=== PATIENT | female | born 2000 | race Caucasian/White ===

== ENCOUNTER 2024-03-26 15:34 | Emergency (ER) | payer BC, SELFPAY ==
[2024-03-26 15:40] VITALS: BP 137/74; PULSE 86; RESP 20; TEMP 36.7; O2SAT 100
--- NOTE | 2024-03-26 15:49 | ED.SKABFB ---
HPI - Skin/Abscess/Foreign Bdy General Chief complaint: Skin/Abscess/Foreign Body Stated complaint: Infected cuticle right hand History of Present Illness HPI narrative: Patient presents with tenderness to right middle finger. States she has been soaking it for several days it has become more painful and tender to touch. Related Data Home Medications ?Medication ?Instructions ?Recorded ?Confirmed ?Last Taken ?Type dextroamphetamine-amphetamine 15 03/26/24 Unknown History mg tablet ergocalciferol (vitamin D2) 1,250 03/26/24 Unknown History mcg (50,000 unit) capsule Allergies Allergy/AdvReac Type Severity Reaction Status Date / Time pregabalin Allergy Unknown Unknown Verified 03/26/24 15:46 Review of Systems Review of Systems: CONSTITUTIONAL: Denies chills, or sweats. Reports fever and generalized body aches EYES: Denies visual changes, redness, or discharge. ENT: Denies otalgia. Reports nasal congestion runny nose and sore throat CARDIOVASCULAR: Denies chest pain, palpitations, or edema. RESPIRATORY: Denies dyspnea. Reports occasional cough GASTROINTESTINAL: Denies abdominal pain, nausea, vomiting, or diarrhea. GENITOURINARY: Denies dysuria or hematuria. SKIN: Denies rash or itching. MUSCULOSKELETAL: Denies back pain, joint pain, or myalgia. Reports generalized body aches NEUROLOGIC: Denies headache, numbness, or weakness. PSYCHIATRIC: Denies anxiety or depression. PMFSH Comments At time of signature, agree with nursing past medical, surgical, social and family history. There is no relevant family history pertinent to the presenting complaint Exam Narrative: The patient is a well-developed, well-nourished in no acute distress. SKIN: Skin is warm and dry without erythema, swelling or exudate. There is good turgor. No tenting. HEAD: Atraumatic. Normocephalic. No temporal or scalp tenderness. EYES: Moist and bright. Sclera and conjunctivae normal. No discharge. PERRLA. Extraocular motions intact. Gross visual acuity intact. EARS: Pinna is normal shape and contour. Clear external auditory canals. TM pearly escobar with good cone of light, no erythema or suppuration. Bilateral cerumen noted no gross hearing deficit. NOSE: pink, moist mucosa with good air movement. Clear rhinorrhea without nasal flaring. Septum midline. Mouth: moist mucous membranes. THROAT; mild erythema noted to posterior oropharynx with moderate postnasal drainage. Without exudate or ulceration.. Uvula midline. Normal movement of soft palate. NECK: Supple and nontender with full range of motion without discomfort. No meningeal signs. LUNGS: Equal and bilateral breath sounds without wheezes, rales or rhonchi. CHEST: The chest wall is without retractions or use of accessory muscles. HEART: Has a regular rate and rhythm without murmur, gallops, click or rub. ABDOMEN: Soft, nontender with positive active bowel sounds. No rebound tenderness. EXTREMITIES: Without cyanosis, clubbing or edema. Equal 2+ distal pulses and 2 second capillary refill noted. Paronychia finger paronychia SWELLING AND REDNESS AND FLUCTUANCE CONSISTENT WITH PARONYCHIA. NORMAL CAP REFILL. NORMAL SENSATION OF DISTAL FINGER. NORMAL 2 POINT DISCRIMINATION. NORMAL MOVEMENT OF FINGER AT PIP, DIP, MCP. NORMAL HAND EXAM. NO STREAKING OR REDNESS INTO HAND. NEUROLOGIC: alert, active, . The patient moves all extremities with normal muscle strength. Normal muscle tone is noted. Normal coordination is noted. NO focal neurological findings noted. Course Course Level of Care: Express Care Visit Vital Signs Vital signs: Vital Signs Temperature 36.7 C 03/26/24 15:40 Pulse Rate 86 03/26/24 15:40 Respiratory Rate 20 03/26/24 15:40 Blood Pressure 137/74 03/26/24 15:40 Pulse Oximetry 100 03/26/24 15:40 Oxygen Delivery Room Air 03/26/24 15:40 Temperature 36.7 C 03/26/24 15:40 Pulse Rate 86 03/26/24 15:40 Respiratory Rate 20 03/26/24 15:40 Blood Pressure 137/74 03/26/24 15:40 Pulse Oximetry 100 03/26/24 15:40 Oxygen Delivery Room Air 03/26/24 15:40 Please JAY schedule a followup visit with your personal physician for further evaluation and treatment. Including recheck and discussion of your blood pressure. If your symptoms persist, change or worsen significantly before you can contact your personal physician then please, without delay, go to the emergency department for further evaluation Discharge Plan Discharge Clinical Impression: Paronychia of finger of right hand Patient Disposition: Home, Self-Care Condition: Stable Instructions: Antibiotic Form Additional Instructions: <del>warm</del> <del>compresses</del> <del>to</del> <del>the</del> <del>area</del> <del>20-30</del> <del>minutes</del> <del>4-6</del> <del>times</del> <del>a</del> <del>day</del> <del>and</del> <del>as</del> <del>needed</del> <del>elevate</del> <del>the</del> <del>area</del> <del>if</del> <del>possible</del> <del>Antibiotic</del> <del>as</del> <del>prescribed</del> <del>until</del> <del>gone</del> <del>Warm</del> <del>soaks</del> <del>in</del> <del>Epsom</del> <del>salts</del> <del>2</del> <del>to</del> <del>3</del> <del>times</del> <del>a</del> <del>day</del> <del>for</del> <del>20</del> <del>minutes</del> <del>at</del> <del>length.</del> <del>Follow-up</del> <del>with</del> <del>primary</del> <del>care</del> <del>provider</del> <del>as</del> <del>needed</del> Patient Language: Austrian Prescriptions: New cephalexin 500 mg capsule 500 mg PO Q8H 7 Days Qty: 21 0RF mupirocin 2 % ointment 1 applic TOPICAL TID 7 Days Qty: 15 0RF No Action dextroamphetamine-amphetamine 15 mg tablet ergocalciferol (vitamin D2) 1,250 mcg (50,000 unit) capsule Follow-up/Referrals: Nita,Dena Rodriguez, BACK PADDER [Primary Care Provider] -
--- OUTSIDE RECORDS SUMMARY | 2024-03-30 22:55 | XMS_ITS | Encounter Summary ---
Author Organization [facility] Address [address] [place] [address] Phone Care Team Providers Care Sample Weaver Name Role Phone Unavailable Primary Care Provider Unavailabl e Encounter Details Date Type Department Care Team (Late st Contact Info) Description 01/14/2023 Telephone [facility] - Family Medicine - [address] [place] [id number] Ally Moreira, PAC [address] [place] [address] Social History Tobacco Use Types Packs/Day Years Used Date Smoking Tobacco: Never Assessed Comments Unknown Sex and Gender Information Value Date Recorded Sex Assigned at Not on file Legal Sex Female 12:14 PM CDT Gender Identity Not on file Sexual Orientation Not on file documented as of this encounter Miscellaneous Notes * Telephone Encounter - Katarzyna Pearson - 01/14/2023 4:46 PM CDT Called to pre-visit, patient is at work and can not pre-visit documented in this encounter Plan of Treatment Not on file documented as of this encounter Visit Diagnoses Not on filedocumented in this encounter
--- OUTSIDE RECORDS SUMMARY | 2024-03-30 22:55 | XMS_ITS | Referral Summary ---
Author Organization [address] Address [address] [place] [id number] Care Team Providers Care Yardage Control Clerk Name Role Phone Dena Moya NP Primary Care Provider [phone] Encounters Date Type Department Care Team Description 01/07/2024 9:00 AM CDT Office Visit [facility] Primary Care at [address] [phone] Diony Oconnor MD FAUSTINO (generalized anxiety disorder) (Primary Dx) from Last 3 Months Allergies Active Allergy Reactions Criticality Noted Date Comments Pregabalin Other (See comments),Palpitations High 01/15/2023 Dizzy and passes out Per patient and her former doctors office Medications UNKNOWN TO PATIENTIndicati ons:pt reports taking lyrica and ultram for pain but does not know doses. Acti ve naproxen (NAPROSYN,ALEVE ) 500 mg tabletIndicatio ns:Pain Take 1 tablet (500 mg total) by mouth 2 (two) times a day with meals. 30 tablet 8 Active ergocalciferol (VITAMIN D) 50,000 unit capsule Take 1 capsule (50,000 Units total) by mouth once a week 12 capsule 1 4 Active clindamycin (CLEOCIN T) 1 % gel Apply to affected area once daily as needed. 180 g 4 4 10/22/19 25 Active escitalopram (Lexapro) 10 mg tabletIndicatio ns:Generalized Anxiety Disorder Take 0.5 tablets (5 mg total) by mouth daily for 14 days, THEN 1 tablet (10 mg total) daily for 14 days. 21 tablet 4 Active hydrOXYzine (ATARAX) 25 mg tabletIndicatio ns:anxiety Take 1 tablet (25 mg total) by mouth 3 (three) times a day as needed for anxiety 30 tablet 4 Active dextroamphetami ne-amphetamine (ADDERALL) 15 mg tablet Take 1 tablet (15 mg total) by mouth 2 (two) times a day 60 tablet 4 Active dicyclomine (BENTYL) 20 mg tabletIndicatio ns:Bilateral lower abdominal cramping Take 1 tablet (20 mg total) by mouth every 6 (six) hours as needed (abdominal cramping) 30 tablet 1 4 Active dicyclomine (BENTYL) 20 mg tablet Take 1 tablet (20 mg total) by mouth every 6 (six) hours as needed (abdominal cramping) 30 tablet 1 4 03/04/20 24 Discontinu ed(Reorder ) Active Problems Problem Noted Date Diagnosed Date Attention deficit disorder 06/18/2023 Assessment & Plan (11/19/2023 2:00 PM CDT): Much improved on Adderall 15 mg BID. No side effects, will continue. Assessment & Plan (10/22/2023 2:45 PM CDT): Improvement was noted but not at goal, will increase to 15 mg BID. Denies any adverse side effects. Assessment & Plan (09/03/2023 2:25 PM CDT): Has been on Adderall x 3 months, diagnosed by Psychologist. Previous PCP started stimulant at 10 mg, increased to 20 mg about 1 month ago. Has been experiencing the side effect of difficulty sleeping. She feels the medication takes a few hours to kick in and then lasts too long. Will switch to immediate release, 10 mg BID. 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 Gender Identity Not on file Sexual Orientation Bisexual 12/03/2023 7: 02 AM CDT Last Filed Vital Signs Vital Sign Reading Time Taken Comments Blood Pressure 110/76 01/07/2024 9:06 AM CDT Pulse 76 01/07/2024 9:06 AM CDT Temperature 36.1 ??C (96.9 ??F) 01/07/2024 9:06 AM CD T Respiratory Rate 16 01/07/2024 9:06 AM CDT Oxygen Saturation 98% 01/07/2024 9:06 AM CDT Inhaled Oxygen Concentration - - Weight 116.6 kg (257 lb) 01/07/2024 9:06 AM CDT Height 157.5 cm (5' 2 ) 01/07/2024 9:06 AM CDT Body Mass Index 47.01 01/07/2024 9:06 AM CDT Plan of Treatment Not on file Procedures Procedure Name Priority Date/Time Associated Diagnosis Comments PAP, REFLEX HPV Routine 12/03/2023 10:44 AM CDT Well woman exam HEPATITIS C ANTIBODY Routine 09/03/2023 2:00 PM CDT Encounter for hepatitis C screening test for low risk patient from Last 3 Months or Most Recently Relevant to Health Maintenance Results * Pap, reflex HPV (12/03/2023 10:44 AM CDT) CLINICAL INFORMATION: Suraj Murcia Comment:Routine exam LMP Suraj Murcia Comment:[id number] Previous Pap Suraj Murcia Comment:None given Prev. Bx Suraj Murcia Comment:None given SOURCE: Suraj Murcia Comment:Cervix, Endocervix Pap, specimen adequacy Suraj Murcia Comment: Satisfactory for evaluation. Endocervical/transformation zone component present. HPV interp Suraj QuVISTashi Murcia Comment: Cytology Results: Negative for intraepithelial lesion or malignancy. Infection: Suraj QuVISTashi Murcia Comment: Shift in vaginal beau suggestive of bacterial vaginosis. COMMENTS Suraj QuVISTashi Murcia Comment: This Pap test has been evaluated with computer assisted technology. Allergy Specialist Margarito QuVISTashi Murcia Comment: BKA, CT(ASCP) CT screening location: [place] [address] [address] [place] [id number] Comment Suraj QuVISTashi Murcia Comment: EXPLANATORY NOTE: The Pap is a screening test for cervical cancer. It is not a diagnostic test and is subject to false negative and false positive results. It is most reliable when a satisfactory sample, regularly obtained, is submitted with relevant clinical findings and history, and when the Pap result is evaluated along with historic and current clinical information. Thin prep 12/03/2023 10:4 4 AM CDT 12/04/2023 1:10 AM CDT Radha Delgadillo [employer] LAB CYTOLOGY ORDERABLES Final Re sult Performing Organization Address [facility] Co de Phone Number [facility] [place] [address] [address] [place] [phone] * Hepatitis C antibody Blood (09/03/2023 2:00 PM CDT) Hep C Ab Nonreactive Nonreactive Comment: Interpretive Data Nonreactive: Antibodies to HCV not detected. Does NOT exclude the possibility of recent exposure to HCV. Equivocal: Equivocal for HCV antibodies. Supplemental molecular testing will be automatically performed to determine infection status in accordance with current CDC screening recommendations. ?? Reactive: Positive for HCV antibodies. ??This may represent current or past HCV infection. Supplemental molecular testing will be automatically performed to determine ??current infection status in accordance with current CDC screening recommendations. Interpretive data was last revised on 2019. Blood 09/03/2023 2:00 PM CDT 09/03/2023 8:07 PM CDT Dena Moya [employer] LAB MICROBIOLOGY - GENERAL ORDER ANTHONY Final Result [place] [id number] [address] Department [place] [address] from Last 3 Months or Most Recently Relevant to Health Maintenance Insurance [employer] [place] [employer] [place] Care Teams Yardage Control Clerk Relationship Specialty Start Date End Date Dena Moya NP [address] [address] PCP - General Family Medicine 09/03/23
--- OUTSIDE RECORDS SUMMARY | 2024-03-30 22:55 | XMS_ITS | Encounter Summary ---
Author Organization [facility] Address [address] [place] [address] Phone Care Team Providers Care Inspector Repairer Name Role Phone Ally Moreira Primary Care Provider + Reason for Visit * Consult, Test & Initiate Treatment (Routine) - Closed Specialty Diagnoses / Procedures Referred By Ifeanyi nieves Referred To Contact Behavioral Health Diagnoses Attention deficit Ally Moreira, [address] [place] [address] Phone: tel: fax: Preet Stafford PSYD [place] Referral ID Status Reason Start Date Expiration Date Visits Re quested Visits Authorized [id number] Closed 01/16/2023 12 12 Encounter Details Date Type Department Care Team (Latest Contact Info) Description 04/07/2023 2:00 PM AUTOMOTIVE BRAKE ADJUSTER Outpatient Clinic Visit [facility] [address] [place] [address] Preet Stafford PSYD [place] Discharge Disposition: Discharged to home or Selfcare Social History Tobacco Use Types Packs/Day Years Used Date Smoking Tobacco: Every Day Cigarettes Smokeless Tobacco: Never Tobacco Cessation:Ready to Q uit: Not Asked; Counseling Given: Not Answered Alcohol Use Standard Drinks/Week Comments Yes 0 (1 standard drink = 0.6 oz pur e alcohol) on occasion Sexually Active Control Partners Comments Yes Comments No Sex and Gender Information Value Date Recorded Sex Assigned at Not on file Legal Sex Female 12:14 PM CDT Gender Identity Not on file Sexual Orientation Not on file documented as of this encounter Functional Status * Over the past 2 weeks, how often have you been bothered by any of the following problems? Question Answer Date of Assessment Author Patient Health Questionnaire-2 Score 0 04/07/2023 2:00 PM Preet Torres Sa, PSYD * If you checked off any problems on this questionnaire so far, Question Answer Date of Assessment Author How difficult have these problems made it for you to do your work, take care of things at home, or get along with other people? Very difficult 04/07/2023 2:00 PM Preet Torres PSYD * Over the last 2 weeks, how often have you been bothered by any of the following problems? Question Answer Date of Assessment Author Feeling nervous, anxious, or on edge 1 04/07/2023 2:00 PM Preet Torres PSYD Not being able to stop or control worrying 0 04/07/2023 2:00 PM Preet Torres PSYD Worrying too much about different things 1 04/07/2023 2:00 PM Preet Torres PSYD Trouble relaxing 3 04/07/2023 2:00 PM Preet Pritchett PSYD Being so restless that it is hard to sit still 1 04/07/2023 2:00 PM Preet Torres PSYD Becoming easily annoyed or irritable 1 04/07/2023 2:00 PM Preet Torres PSYD Feeling afraid as if something awful might happen 1 04/07/2023 2:00 PM Preet Torres PSYD FAUSTINO-7 Total Score 8 04/07/2023 2:00 PM Preet Torres PSYD * Over the past 2 weeks, how often have you been bothered by any of the following problems? Question Answer Date of Assessment Author Little interest or pleasure in doing things Not at all 04/07/2023 2:00 PM Preet Torres PSYD Feeling down, depressed, or hopeless Not at all 04/07/2023 2:00 PM Preet Torres PSYD Trouble falling or staying asleep, or sleeping too much Nearly every day 04/07/2023 2:00 PM AUTOMOTIVE BRAKE ADJUSTER Preet Stafford PSYD Feeling tired or having little energy Not at all 04/07/2023 2:00 PM Preet Torres PSYD Poor appetite or overeating Not at all 04/07/2023 2:00 PM Preet Torres PSYD Feeling bad about yourself - or that you are a failure or have let yourself or your family down Several days 04/07/2023 2:00 PM Preet Torres PSYD Trouble concentrating on things, such as reading the newspaper or watching television Nearly every day 04/07/2023 2:00 PM AUTOMOTIVE BRAKE ADJUSTER Preet Stafford PSYD Moving or speaking so slowly that other people could have noticed? Or the opposite - being so fidgety or restless that you have been moving around a lot more than usual. Not at all 04/07/2023 2:00 PM Preet Torres PSYD Thoughts that you would be better off or hurting yourself in some way Not at all 04/07/2023 2:00 PM Preet Torres PSYD Patient Health Questionnaire-9 Score 7 04/07/2023 2:00 PM Preet Torres PSYD documented as of this encounter Patient Instructions * Patient Instructions* Preet Stafford PSYD - 04/07/2023 2:00 PM AUTOMOTIVE BRAKE ADJUSTER Images from the original note were not included. Suicide Hotlines - Crisis Intervention 03/11 Intervention Team [facility] Crisis Intervention Team?[phone] ([facility] Crisis Intervention Team?.. [phone] ([facility] Can be used by individual, PD, Hospitals, family, friend etc. for in-home assessment of concerns for someone's mental health Local Numbers - Behavioral Health Response (BHR)?356.456.3513 / [phone] ([facility]) Life Crisis Services?.589-173- HELP (3406) ([facility]) CARES Line (Medicaid patients up to age 21)???498.472.1966 If non-Medicaid patient, still need tocall Cares Line and if screened out will be sent to Tana Mohamud for follow up Crisis Intervention Team National Numbers - National Suicide Prevention Hotline: ?.988 or 9-626-637-TALK (8538) Sexual Assault Hotline?7-033-225-NASHOTAH (3056) Domestic Violence Hotline?.1-285-228-SAFE (8853) [facility] [facility] Lifeline? Trans Lifeline? LGBTQ Partner Abuse & Sexual Assault Line?.1-494.779.6731 Crisis Text Line?Text help to 432613 Warm Lines [place] Warmline?3-217-833-79 53 [facility] Warmline? 9a-9p/7 days a week [facility] Warmline?..8-112-289-8111 MENTAL HEALTH EMERGENCY- Assessment for Crisis/or/ED's with Inpatient Units Behavioral Health Urgent Care [facility] Behavioral Health Urgent Care [phone] (5yrs old to Adult) [address] [address] Thursday - Thursday 9:00am - 7:00pm *Last patient seen at 6:00pm Walk-In Crisis or Telehealth for age 18+ Crisis Walk In: Call for Help's Living Room: Thursday-Thursday 8:30am-5pm [address] [place] [address] Crisis Telehealth: Thursday, Thursday, Thursday 8:30am-5:00pm and Thursday, 12:00pm-8:00pm. Must have good internet connection. To access telehealth go to ???Talk to Someone Now?? or call [phone] ext. 109. No cost and no insurance necessary. Emergency Department diversion program. [facility] (Intake Adult Acute) [phone] [place] [address]. https://[facility].org/services/uavcntudai-brxzlm-aot-wellness [facility] [phone] (Intake Adult 18+-Used by clinician to alert that patient will be coming in through the emergency room) [address] [place] [address] [facility] (03/11 - emergency services for children age 4+, adolescent, adult) [phone] [place] [address]. Adult Inpatient Facility. http://[facility].org/ [facility] Sexual Assault Victims Care Unit. (Children, adolescent, adult) 03/11 crisis intervention: 766.506.4955 Hotline Number and Main Office. Community Stabilization (Homeless adults with Mental Illness) 252.805.1851. http://callfornew [facility].org/ [facility] 266-706-1893111.311.6660 (children, adolescent, adult) [address] [place] [address] http://[facility].com/admission-informationfaqs/ [facility] Behavioral Health 516-047-4275 Option #1 (adult) [address] [place] [address] https://www.[facility]/service/mental-health Inpatient evaluations conducted in Intake office on the ground floor 8am-4pm [facility] (children, adolescent, adult) http://[facility].com/behavioralhealth [facility] [phone] (Adult only) https://www.[facility]/psychiatry/fdzpn-zwrtktrsqb-szbwebey.php [facility] Behavioral Health. [phone] (children, adolescent, adult) http://www.[facility]/medical-services/behavioral-health MOTIVE BRAKE ADJUSTER documented in this encounter Progress Notes * Preet Stafford PSYD - 04/07/2023 2:00 PM CST [facility] INITIAL EVALUATION Name: Danyell Edwards Age: 22 y.o. Date of : 2000 Date of service: 04/07/2023 Start time: 2:00 pm End time: 3:00 pm DIAGNOSIS: No diagnosis found. PRIMARY CARE PHYSICIAN: MERCEDES Goss CHIEF COMPLAINT/PRESENTING PROBLEM: What are the main concerns which brought you to treatment at this time?: Behavioral: attention/concentration Recent examples of current difficulty include: Patient has been referred for a psychological assessment to determine whether she has ADHD. Patient struggles with time management. Focusing on anythingis pulling teeth. She finds herself forgetful. She has trouble keeping to deadlines and keeping on task. She states convincing myself to do anything is nearly impossible. 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 She struggles with the details like putting the right name on pill bottles. She also finds she cannot focus on prioritizing her chores, finding anything can pull her attention away. In school, patient found that she struggled with doing homework in the past because she felt paralyzed with what she was doing at the moment. She recalls being a smart kid and doing well only when something could be done at school, otherwise procrastinating until they were about to be due or overdue. She recalls reports of being highly distracted in school. Patient also finds she dissociates often, by which she described spacing out when overstimulated. Patient's yurvig-dc-fav recently passed way suddenly due to heart attack. MENTAL STATUS EXAMINATION: Orientation: Oriented to person, place, time and situation Appearance: Appears stated age Behavior: alert Speech: Communicative, spoke clearly in sentences Mood: euthymic Affect: within normal range Thought Process: Clear and well linked Thought Content: No evidence of perceptual distortion and/or psychosis Perception: No hallucinations Memory: Reported: Short and snf memory intact Attention: Easily distracted Insight/Judgement: Normal insight and judgement FUNCTIONAL ASSESSMENT: Can the patient perform Activities of Daily Living (ADL'S)?: Patient is able to complete ADL's independently Does patient have the ability and the capacity to respond to treatment?: Yes RISK ASSESSMENT: Suicidal Ideation: There is past history of suicidal ideation. Reports wishing she were and making suicidal gestures in 2016, leading to hospitalization. . -[place]- Suicide Severity Rating Scale: Risk Stratification: Risk Assessment: Homicidal Ideation: There is no history of homicidal ideation.. Self Harm: Yes. Past history of self harm History of cutting herself. Last cut self in 2021. PSYCHIATRIC/PSYCHOLOGICAL HISTORY: (include any history of behavioral health difficulties, behavioral health treatment, or inpatient hospitalizations) Hospitalized at [facility] in 2016 after being depressed and self-harming. Struggled with depression and anxiety throughout her life. Previous mental health treatment: Yes. Where was treatment received/who provided treatment? Saw therapist after being hospitalized What was the outcome of treatment? Very positive experience SOCIAL HISTORY: Current relationship status: Currently living with Spouse Will family be involved in treatment? No Social supports, hobbies, and activities: Going on drives, crafting, anything that keeps her handsbusy. Are there any languages other than Iranian spoken in the home? No Are there any Anabaptist or Cultural Considerations that may impact treatment in any way? No FAMILY OF ORIGIN: Parent(s)/Caregiver(s): Raised by both parents. Place of /where raised. [facility] Sibling(s): Yes- 4 half sisters, 1 half brother. Family mental health and substance abuse history: Mother and father both struggled with depression and anxiety. Suspects father has ADHD. One half sister has been diagnosed with ADHD. DEVELOPMENTAL HISTORY: Pertinent neurodevelopmental considerations: 5 weeks premature. Mother was on seizure medication during . COMMUNICATION: Are there any barriers to communication: None Identified EDUCATIONAL/EMPLOYMENT HISTORY: Currently in school? 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 Current: No Reported Trauma Past: Emotional. Patient reported her parents struggled with anger throughout her childhood PAST AND CURRENT SUBSTANCE USE: Tobacco: Yes- Vaping several times per day Alcohol: Yes- Mostly drinks 3-4 drinks per month Other substances: Yes- Occasional marijuana use Substance use treatment?: No. LEGAL HISTORY: Pertinent legal history: No Does patient have access to firearms?: No FINANCIAL STATUS: The following financial stressors were identified: None SERVICE HISTORY: No DAILY ROUTINE: Sleep: difficulty falling asleep. Mind racing makes it difficult to sleep. approximate hours of sleep per night?: 6 Appetite/Meals: No changes Exercise: Daily TREATMENT RECOMMENDATIONS: Recommendations for initial treatment plan: Return for next available follow up appointment MEDICAL HISTORY: Allergies: Allergies Allergen Reactions ??? Pregabalin Palpitations and Other (see Comments) Dizzy and passes out Per patient and her former doctors office Current medications: No current outpatient medications on file. No current facility-administered medications for this visit. Medical History: No past medical history on file. Surgical History: Past Surgical History: Procedure Laterality Date ??? BACK SURGERY 2018 History of Head injury? No Any other medical concerns? Back issues several years ago, required surgery Labs: No results found for: WBC , RBC , HEMOGLOBIN , HEMATOCRIT , MCV , MCH , MCHC , PLATELETCNT , RDW , DIFF , LYMPHOCYTES , RELEOS , RELBAS , ANC , MONOCYTES , EOSINOPHILS , BASOPHILS No results found for: SODIUM , POTASSIUM , CHLORIDE , CO2VEN , ANIONGAP , GLUCOSE , BUN , CREATININE , TOTALPROTEIN , ALBUMIN , CALCIUM , TBIL , BILIRUBIN , AST , SGPTALT , ALKALINEPHO , GFRNA , GFRA , GFRES No results found for: RPR No results found for: TSH , T3 , T4 , T4FREE , TPOAB No results found for: ETHANOL No results found for: SALICYLATE No results found for: ACETAMINOPHE Preet Stafford PSYD MOTIVE BRAKE ADJUSTER documented in this encounter Plan of Treatment Not on file documented as of this encounter Visit Diagnoses Not on filedocumented in this encounter Care Teams Inspector Repairer Relationship Specialty Start Date End Date Ally oMreira [address] [place] [address] PCP - General Physician Weatherization Administrator 01/16/23 documented as of this encounter
--- OUTSIDE RECORDS SUMMARY | 2024-03-30 22:55 | XMS_ITS | Encounter Summary ---
Author Organization [employer] Care Team Providers Care Cert Occupational Therapy Asst Name Role Phone Ally Moreira Primary Care Provider + Encounter Details Date Type Department Care Team (Latest Contact Info) Description 06/18/2023 Travel Social History Tobacco Use Types Packs/Day Years Used Date Smoking Tobacco: Every Day Cigarettes Smokeless Tobacco: Never Alcohol Use Standard Drinks/Week Comments Yes 0 (1 standard drink = 0.6 oz pur e alcohol) on occasion PHQ-2 Answer Date Recorded Total Score - Questions 1-9 0 10/2023 Sexually Active Control Partners Comments Yes Comments No Sex and Gender Information Value Date Recorded Sex Assigned at Not on file Legal Sex Female 12:14 PM CDT Gender Identity Not on file Sexual Orientation Not on file documented as of this encounter Functional Status * Question Answer Date of Assessment Author Little interest or pleasure in doing things Not at all 06/18/2023 3:02 PM Rosie Gómez C MA Feeling down, depressed, or hopeless Not at all 06/18/2023 3:02 PM Rosie Gómez C MA * Over the past 2 weeks, how often have you been bothered by any of the following problems? Question Answer Date of Assessment Author Patient Health Questionnaire -2 Score 0 06/18/2023 3:02 PM Rosie Gómez C MA documented as of this encounter Plan of Treatment Not on file documented as of this encounter Visit Diagnoses Not on filedocumented in this encounter Additional Health Concerns Assessment Noted Time PHQ-9 Depression Total Score: 0 06/18/19 3:02 PM PLASTIC TILE SETTER documented as of this encounter Care Teams Cert Occupational Therapy Asst Relationship Specialty Start Date End Date Ally Moreira, [address] [place] [address] PCP - General Physician Staff Field Engineer 01/16/23 documented as of this encounter
--- OUTSIDE RECORDS SUMMARY | 2024-03-30 22:55 | XMS_ITS | Encounter Summary ---
Author Organization [employer] Care Team Providers Care Aml Analyst Name Role Phone Ally Moreira Primary Care Provider + Encounter Details Date Type Department Care Team (Latest Contact Info) Description 05/25/2023 Travel Social History Tobacco Use Types Packs/Day [...] on file documented as of this encounter Plan of Treatment Not on file documented as of this encounter Visit Diagnoses Not on filedocumented in this encounter Care Teams Aml Analyst Relationship Specialty Start Date End Date Ally Moreira [address] [place] [address] PCP - General Physician Spout Liner Helper 01/16/23 documented as of this encounter
--- OUTSIDE RECORDS SUMMARY | 2024-03-30 22:55 | XMS_ITS | Encounter Summary ---
Author Organization [facility] Address [address] [place] [id number] Care Team Providers Care Anesthetic Assistant Name Role Phone Ben Gill DO Primary Care Provider [phone] Reason for Visit * Reason Comments Rash red raised rash on t he right side of face x 2 wks, says it hanley and itching. Encounter Details Date Type Department Care Team (Late st Contact Info) Description 05/15/2017 7:00 PM SPORTS BOOK BOARD ATTENDANT Office Visit [facility] [address] [place] [place] [id number] Huang Dobson NP [address] [place], [place] [id number] Impetigo (Primary Dx) Social History Tobacco Use Types Packs/Day Years Used Date Smoking Tobacco: Never Smokeless Tobacco: Never Comments No Sex and Gender Information Value Date Recorded Sex Assigned at Not on file Legal Sex Female 2:33 AM SPORTS BOOK BOARD ATTENDANT Gender Identity Not on file Sexual Orientation Bisexual 12/03/2023 7: 02 AM CDT documented as of this encounter Last Filed Vital Signs Vital Sign Reading Time Taken Comments Blood Pressure 120/80 05/15/2017 7:06 PM SPORTS BOOK BOARD ATTENDANT Pulse 66 05/15/2017 7:06 PM SPORTS BOOK BOARD ATTENDANT Temperature 36.7 ??C (98 ??F) 05/15/2017 7:06 PM SPORTS BOOK BOARD ATTENDANT Respiratory Rate 18 05/15/2017 7:06 PM SPORTS BOOK BOARD ATTENDANT Oxygen Saturation 98% 05/15/2017 7:06 PM SPORTS BOOK BOARD ATTENDANT Inhaled Oxygen Concentration - - Weight 104.3 kg (230 lb) 05/15/2017 7:06 PM SPORTS BOOK BOARD ATTENDANT Height 157.5 cm (5' 2 ) 05/15/2017 7:06 PM SPORTS BOOK BOARD ATTENDANT Body Mass Index 42.07 05/15/2017 7:06 PM SPORTS BOOK BOARD ATTENDANT Body Mass Index Percentile 99.39% 05/15/2017 7:0 6 PM SPORTS BOOK BOARD ATTENDANT Growth Chart: [facility] (Girls, 2- 20 Years) documented in this encounter Patient Instructions * Patient Instructions* Huang Dobson, MARKETING ANALYST - 05/15/2017 7:18 PM SPORTS BOOK BOARD ATTENDANT Images from the original note were not included. Use antibiotic ointment as prescribed Wash w mild soap & water- pat dry- do not wipe Keep fingernails short & clean to prevent the spread of the infection Complete antibiotic as prescribed Do not share towels or bedding Monitor for pus/drainage or streaking from areas If symptoms worsen or do not get better- Go to ER or call PCP Patient Education Impetigo STOCK ORDER LISTER: Impetigo is a skin infection caused by bacteria. The infection can cause sores to form anywhere on your body. The sores develop watery or pus-filled blisters that break and form thick crusts. Impetigo is most common in children and spreads easily from person to person. Seek care immediately if: ?? You have painful, red, warm skin around the blisters. ?? Your face is swollen. ?? You urinate less than usual or there is blood in your urine. Contact your healthcare provider if: ?? You have a fever. ?? The sores become more red, swollen, warm, or tender. ?? The sores do not start to heal after 3 days of treatment. ?? You have questions or concerns about your condition or care. Treatment for impetigo includes antibiotics to treat the bacterial infection. Antibiotics may be given as a pill or cream. Wash your skin and gently remove any crusts before you apply the antibiotic cream. Clean your sores safely: Wash your skin sores with antibacterial soap and water. You may need to dothis 2 to 3 times each day until the sores heal. If the area is crusted, gently wash the sores withgauze or a clean washcloth to remove the crust. Pat the area dry with a clean towel. Wash your hands, the washcloth, and the towel after you clean the area around the sores. Prevent the spread of impetigo: ?? Avoid direct contact. You can spread impetigo if someone touches or uses something that touched your infected skin. You can also spread impetigo on your own body when you touch the area and then touch somewhere else. Keep the sores covered with gauze so you will not scratch or touch them. Keep your fingernails short. Your child may need to wear mittens so he does not scratch his sores. ?? Wash your hands often. Always wash your hands after you touch the infected area. Wash your handsbefore you touch food, your eyes, or other people. If no water is available, use an alcohol-based gel to clean your hands. ?? Wash household items. Do not share or reuse items that have come in contact with impetigo sores.Examples include bedding, towels, washcloths, and eating utensils. These items may be used again after they have been washed with hot water and soap. Return to work or school: You may return to work or school 48 hours after you start the antibiotic medicine. If your child has impetigo, tell his school or daycare center about the infection. Follow up with your healthcare provider as directed: Write down your questions so you remember to ask them during your visits. ?? 2016 [employer]. Information is for End User's use only and may not be sold, redistributed or otherwise used for commercial purposes. All illustrations and images included in CareNotes?? are the copyrighted property of [employer] or [employer]. The above information is an instructional aide only. It is not intended as medical advice for individual conditions or treatments. Talk to your doctor, nurse or pharmacist before following any medical regimen to see if it is safe and effective for you. TS BOOK BOARD ATTENDANT TS BOOK BOARD ATTENDANT TS BOOK BOARD ATTENDANT documented in this encounter Ordered Prescriptions Prescription Sig Dispense Quantity Refills Last Filled Start Date End Date mupirocin (BACTROBAN) 2 % ointmentIndication s:Impetigo Apply topically 3 (three) times a day for 10 days. 22 g 05/15/2017 8 documented in this encounter Progress Notes * Huang Dobson, MARKETING ANALYST - 05/15/2017 7:00 PM CST Images from the original note were not included. Subjective Patient ID: Danyell Nix is a 16 y.o. female. Rash (red raised rash on the right side of face x 2 wks, says it hanley and itching.) Small honey crusted lesions to the right cheek onset 2 weeks ago with one small area now has grown since using facial washes without relief Rash This is a new problem. The current episode started 1 to 4 weeks ago. The problem has been graduallyworsening since onset. The affected locations include the face. The rash is characterized by redness and draining. She was exposed to nothing. Pertinent negatives include no congestion, cough, facialedema or fatigue. Past treatments include nothing (Facial washes). The treatment provided no relief. Review of Systems Constitutional: Negative for activity change and fatigue. HENT: Negative for congestion. Respiratory: Negative for cough. Cardiovascular: Negative for chest pain. Musculoskeletal: Negative for back pain. Skin: Positive for rash (honey crusted lesions). Objective Physical Exam Constitutional: She is oriented to person, place, and time. She appears well- developed and well-nourished. HENT: Head: Normocephalic. Mouth/Throat: Oropharynx is clear and moist. Eyes: Pupils are equal, round, and reactive to light. Neck: Normal range of motion. Cardiovascular: Normal rate, regular rhythm and normal heart sounds. Pulmonary/Chest: Effort normal and breath sounds normal. Abdominal: Soft. Musculoskeletal: Normal range of motion. Neurological: She is alert and oriented to person, place, and time. Skin: Skin is warm and dry. Rash noted. No erythema. Psychiatric: She has a normal mood and affect. Nursing note and vitals reviewed. Vitals: 05/15/17 1906 BP: 120/80 BP Location: Left arm Patient Position: Sitting Pulse: 66 Resp: 18 Temp: 36.7 ??C (98 ??F) TempSrc: Oral SpO2: 98% Weight: 104.3 kg (230 lb) Height: 157.5 cm (5' 2 ) Assessment/Plan Diagnoses and all orders for this visit: Impetigo (Primary) - mupirocin (BACTROBAN) 2 % ointment; Apply topically 3 (three) times a day for 10 days. Use antibiotic ointment as prescribed Wash w mild soap & water- pat dry- do not wipe Keep fingernails short & clean to prevent the spread of the infection Complete antibiotic as prescribed Do not share towels or bedding Monitor for pus/drainage or streaking from areas If symptoms worsen or do not get better- Go to ER or call PCP No notes on file TS BOOK BOARD ATTENDANT documented in this encounter Plan of Treatment Not on file documented as of this encounter Visit Diagnoses Diagnosis Impetigo- Primary documented in this encounter Care Teams Anesthetic Assistant Relationship Specialty Start Date End Date Ben Gill DO PCP - General 12/03/11 09/02/23 documented as of this encounter
--- OUTSIDE RECORDS SUMMARY | 2024-03-30 22:55 | XMS_ITS | Encounter Summary ---
Author Organization [facility] Healthcare Address [address] [place] [address] Care Team Providers Care Director Technical Name Role Phone Dena Moya RUSTIC FENCE BUILDER Primary Care Provider [phone] Reason for Referral * Diagnostic Lab (Routine) - Closed Specialty Diagnoses / Procedures Referred By Ifeanyi nieves Referred To Contact Lab Diagnoses Bilateral lower abdominal cramping Functional diarrhea Procedures Calprotectin, fecal - Miscellaneous Test Calprotectin, fecal - Miscellaneous Test Dena Moya NP [address] [address] Phone: tel: fax: Referral ID Status Reason Start Date Expiration Date Visits Re quested Visits Authorized [id number] Closed 09/03/2023 10/02/2024 1 1 * Consultation (Routine) - Closed Specialty Diagnoses / Procedures Referred By Contminh t Referred To Contact Obstetrics and Gynecology Diagnoses Cervical cancer screening Dena Moya NP [address] [place] [address] Phone: tel: fax: [facility] at [address] [address] Phone: tel: fax: Referral ID Status Reason Start Date Expiration Date V isits Requested Visits Authorized [id number] Closed Specialty Services Required 09/03/2023 10/02/2024 1 1 Question Answer Please select the performing region: [facility] [[id number]] Please select the performing department: [facility] [place] [facility] [[id number]] # of visits: 1 Reason for Visit * Reason Comments New Patient Pt states to select specialty hospital. Pt states at least 45 minutes after eating she has diarrhea.Pt has been getting dizzy when she goes from sitting/or crouching to standing. Pt states her vision goes in and out during those times. Pt states she also has issues sleeping. Encounter Details Date Type Department Care Team (Latest Contact Info) Description 09/03/2023 1:30 PM CDT Office Visit [facility] Primary Care at [address] [address] Dena Moya NP [address] [place] [address] [address] [place] [address] Attention deficit disorder, unspecified hyperactivity presence (Primary Dx); Bilateral lower abdominal cramping; Functional diarrhea; Orthostatic dizziness; Encounter for screening examination for intermediate hyperglycemia and diabetes mellitus; Encounter for hepatitis C screening test for low risk patient; Cervical cancer screening; Lipid screening; Thyroid disorder screen; Vitamin D deficiency; Class 3 severe obesity due to excess calories without serious comorbidity with body mass index (BMI) of 45.0 to 49.9 in adult (HCC) Social History Tobacco Use Types Packs/Day Years Used Date Smoking Tobacco: Never Smokeless Tobacco: Current Tobacco Cessation:Ready to Q uit: Not Asked; Counseling Given: Not Answered PHQ-2 Answer Date Recorded PHQ-2 Total Score (If total score is 3 or more points, staff should administer the PHQ-9) 0 09/03/2023 Comments No Sex and Gender Information Value Date Recorded Sex Assigned at Not on file Legal Sex 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 Gender Identity Not on file Sexual Orientation Bisexual 12/03/2023 7: 02 AM CDT documented as of this encounter Last Filed Vital Signs Vital Sign Reading Time Taken Comments Blood Pressure 110/84 09/03/2023 2:07 PM CDT Pulse 90 09/03/2023 2:07 PM CDT Temperature 37.2 ??C (99 ??F) 09/03/2023 1:27 PM CDT Respiratory Rate - - Oxygen Saturation 99% 09/03/2023 2:07 PM CDT Inhaled Oxygen Concentration - - Weight 118.8 kg (262 lb) 09/03/2023 1:27 PM CDT Height 157.5 cm (5' 2 ) 09/03/2023 1:27 PM CDT Body Mass Index 47.92 09/03/2023 1:27 PM CDT documented in this encounter Patient Instructions * Patient Instructions* Dena Moya NP - 09/03/2023 1:30 PM CDT Images from the original note were not included. Stop long acting Adderall. Start immediate release Adderall. May use imodium 2 mg before meals and PRN when in stressful situations Add probiotic to regimen Can take metamucil Peppermint oil (IBGARD) is supplement with some efficacy with IBS, I would encourage that one as well Dicyclomine prescribed to take as needed for abdominal pain with cramps, can take prior to eating aknown trigger or anticipated trigger event. Trial of avoidance of FODMAP sugars: Foods with fermentable sugars should be avoided for the nextfew weeks, to see if improving. Apples, pears, peaches, mangoes, dried fruit, honey, high fructose corn syrup-containing foods/drinks, onions, zucchini, dairy, apricots, peaches, sugar alcohols (sugar-free foods/drinks), Sidell sprouts, cabbage, green beans, lentils, legumes, chick peas To ease IBS and SIBO symptoms, it???s essential to avoid high FODMAP foods that aggravate the gut, including: Dairy-based milk, yogurt and ice cream Wheat-based products such as cereal, bread and crackers Beans and lentils Some vegetables, such as artichokes, asparagus, onions and garlic Some fruits, such as apples, cherries, pears and peaches Instead, base your meals around low FODMAP foods such as: Eggs and meat Certain cheeses such as brie, Camembert, cheddar and feta Elsie milk Grains like rice, quinoa and oats Vegetables like eggplant, potatoes, tomatoes, cucumbers and zucchini Fruits such as grapes, oranges, strawberries, blueberries and pineapple The FODMAP foods are potential triggers for irritable bowel syndrome. I would recommend a stepwise process to evaluate if any of these foodgroups are triggers for you. Do not try to eliminate ALL of these foods at once. Instead work on one group at a time. Spend approx 2 wks cutting a group out of your diet. If you don't notice a change, you can reintroduce those foods and move on to the next group. If you DO notice a change, you can sometimes experiment within a food group to evaluate if there are specific triggers within that group. Keep a food diary to help you evaluate your body's response (it is VERY hard to do this just by recall). documented in this encounter Ordered Prescriptions Prescription Sig Dispense Quantity Refills Last Filled Start Date End Date dicyclomine (BENTYL) 20 mg tablet Take 1 tablet (20 mg total) by mouth every 6 (six) hours as needed (abdominal cramping) 30 tablet 1 09/03/2023 03/04/2024 dextroamphetamine- amphetamine (ADDERALL) 10 mg tablet Take 1 tablet (10 mg total) by mouth 2 (two) times a day 60 tablet 09/03/2023 10/22/2023 documented in this encounter Progress Notes * Dena Moya NP - 09/03/2023 1:30 PM CDT Images from the original note were not included. Patient ID: Danyell Edwards is a 22 y.o. female. Assessment/Plan Diagnoses and all orders for this visit: Attention deficit disorder, unspecified hyperactivity presence (Primary) Assessment & Plan: Has been on Adderall x 3 months, diagnosed by Psychologist. Previous PCP started stimulant at 10 mg, increased to 20 mg about 1 month ago. Has been experiencing the side effect of difficulty sleeping. She feels the medication takes a few hours to kick in and then lasts too long. Will switch to immediate release, 10 mg BID. Bilateral lower abdominal cramping Comments: suspect IBS-D otc measures discussed, FODMAP, Dicyclomine trial prn. labs ordered to r/o IBD Orders: - CBC with auto differential; Future - Comprehensive metabolic panel; Future - Erythrocyte sedimentation rate; Future - Calprotectin, fecal - Miscellaneous Test; Future Functional diarrhea - CBC with auto differential; Future - Comprehensive metabolic panel; Future - Erythrocyte sedimentation rate; Future - Calprotectin, fecal - Miscellaneous Test; Future Orthostatic dizziness Comments: discussed better hydration. ortho vitals borderline labs ordered Encounter for screening examination for intermediate hyperglycemia and diabetes mellitus - Hemoglobin A1c; Future Encounter for hepatitis C screening test for low risk patient - Hepatitis C antibody Blood; Future Cervical cancer screening - Ambulatory referral to Obstetrics / Gynecology; Future Lipid screening - Lipid panel; Future Thyroid disorder screen - Thyroid Function [place]; Future Vitamin D deficiency - Vitamin D 25 hydroxy; Future Class 3 severe obesity due to excess calories without serious comorbidity with body mass index (BMI) of 45.0 to 49.9 in adult (HCC) Comments: low carb diet and exercise Other orders - dextroamphetamine-amphetamine (ADDERALL) 10 mg tablet; Take 1 tablet (10 mg total) by mouth 2 (two) times a day - dicyclomine (BENTYL) 20 mg tablet; Take 1 tablet (20 mg total) by mouth every 6 (six) hours as needed (abdominal cramping) Follow up 1 Month Chief Complaint New Patient (Pt states to establish care. Pt states at least 45 minutes after eating she has diarrhea.Pt has been getting dizzy when she goes from sitting/or crouching to standing. Pt states her vision goes in and out during those times. Pt states she also has issues sleeping. ) New patient here to establish care. Patient here today to discuss chronic conditions and discuss labs/have labs ordered. Has been experiencing intermittent diarrhea after eating (about 45 min post eating, no specific triggers that she is aware of) x 2018. Watery diarrhea. Gets cramping in the lower abdomen and occasional bloating. Symptoms improve after BM. Denies blood in the stool, does have occasional mucous. Occurs about 3x/week. Also experiences orthostatic dizziness x 3 years or so. Occurs on a daily basis. Not overly hydrated consistently. Review of Systems Respiratory: Negative for shortness of breath. Cardiovascular: Negative for chest pain. Gastrointestinal: Positive for diarrhea. Psychiatric/Behavioral: Positive for decreased concentration. Negative for suicidal ideas. BP 110/84 (BP Location: Right arm, Patient Position: Standing) Pulse 90 Temp 37.2 ??C (99 ??F) (Temporal) Ht 157.5 cm (5' 2 ) Wt 118.8 kg (262 lb) SpO2 99% BMI 47.92 kg/m?? Physical Exam Constitutional: Appearance: Normal appearance. HENT: Head: Normocephalic. Right Ear: External ear normal. Left Ear: External ear normal. Eyes: Extraocular Movements: Extraocular movements intact. Cardiovascular: Rate and Rhythm: Normal rate and regular rhythm. Heart sounds: Normal heart sounds. Pulmonary: Effort: Pulmonary effort is normal. Breath sounds: Normal breath sounds. Abdominal: General: Bowel sounds are normal. Palpations: Abdomen is soft. Tenderness: There is no abdominal tenderness. There is no guarding. Skin: General: Skin is warm and dry. Capillary Refill: Capillary refill takes less than 2 seconds. Neurological: General: No focal deficit present. Mental Status: She is alert and oriented to person, place, and time. Psychiatric: Mood and Affect: Mood normal. Behavior: Behavior normal. Dena Moya NP Cosigned by Diony Oconnor MD at 09/04/2023 4:08 PM CDT documented in this encounter Miscellaneous Notes * Assessment & Plan Note - Dena Moya NP - 09/03/2023 1:56 PM CDTAssociated Problem(s): Attention deficit disorder Has been on Adderall x 3 months, diagnosed by Psychologist. Previous PCP started stimulant at 10 mg, increased to 20 mg about 1 month ago. Has been experiencing the side effect of difficulty sleeping. She feels the medication takes a few hours to kick in and then lasts too long. Will switch to immediate release, 10 mg BID. documented in this encounter Plan of Treatment Scheduled Orders Name Type Priority Associated Diagnoses Orde r Schedule Calprotectin, fecal - Miscellaneous Test Lab Routine Bilateral lower abdominal cramping Functional diarrhea Expected: 09/06/2023, Expires: 09/02/2024 Scheduled Referrals Name Type Priority Associated Diagnoses Order Schedule Ambulatory referral to Obstetrics / Gynecology Outpatient Referral Routine Cervical cancer screening Expected: 09/17/2023 (Approximate), Expires: 09/02/2024 documented as of this encounter Results * Erythrocyte sedimentation rate (09/03/2023 2:00 PM CDT) Erythrocyte sedimentation rate 7 1 - 20 mm/hr Blood 09/03/2023 2:00 PM CDT 09/03/2023 8:07 PM CDT us Dena Moya NP LAB BLOOD ORDERABLES Final Resul t Performing Organization Address City/[facility] Co de Phone Number GL[place]IA [address] [place] [address] * (ABNORMAL) Vitamin D 25 hydroxy (09/03/2023 2:00 PM CDT) Vitamin D 25-OH 15(L) 30 - 80 ng/mL Blood 09/03/2023 2:00 PM CDT 09/03/2023 8:07 PM CDT us Dena Moya NP LAB BLOOD ORDERABLES Final Resul t Performing Organization Address City/[facility] [place] Number [place] [address] [address] Department of [place] [place] [address] * Thyroid Function [place] (09/03/2023 2:00 PM CDT) TSH 1.35 0.30 - 4.20 mcIUnit/mL Blood 09/03/2023 2:00 PM CDT 09/03/2023 8:07 PM CDT us Dnea Moya RUSTIC FENCE BUILDER LAB BLOOD ORDERABLES Final Resul t Performing Organization Address City/State/ZIP Co nd Phone Number [place] [phone] [address] [place] [address] * Lipid panel (09/03/2023 2:00 PM CDT) Cholesterol 188 30 - 199 mg/dL Comment: Interpretive Data Ages < or = 19 years ??Acceptable: ? <170 mg/dL ??Borderline high: ??170-199 mg/dL ??High: ? >or= 200 mg/dL Ages > or = 20 years ??Desirable: ?<200 mg/dL ??Borderline high: ??200-239 mg/dL ??High: ? >or= 240 mg/dL Literature References: 1. Expert Panel on Integrated Guidelines for Cardiovascular Health and Risk Reduction in Children and Adolescents. Pediatrics 2011;128:S213 2. NCEP Expert Panel. Circulation 2004;110:227 Current Interpretive Data was last revised on 2017. Triglycerides 97 <=149 mg/dL [facility]IA REY Comment: Interpretive Data Ages < or = 9 years ??Acceptable: ? <75 mg/dL ??Borderline high: ??75-99 mg/dL ??High: ? >or= 100 mg/dL Ages 10 to 20 years ??Acceptable: ? <90 mg/dL ??Borderline high: ??90-129 mg/dL ??High: ? >or= 130 mg/dL Ages > or = 20 years ??Desirable: ?<150 mg/dL ??Borderline high: ??150-199 mg/dL ??High: ? 200-499 mg/dL ?Very high: ?? >or= 499 mg/dL Literature References: 1. Expert Panel on Integrated Guidelines for Cardiovascular Health and Risk Reduction in Children and Adolescents. Pediatrics 2011;128:S213 2. NCEP Expert Panel. Circulation 2004;110:227 Current Interpretive Data was last revised on 2017. HDL 41 >=40 mg/dL GLORIA Comment: Interpretive Data Ages < or = 19 years ??Acceptable: ? >45 mg/dL ??Borderline low: ?? 40-45 mg/dL ??Low: ? <40 mg/dL Ages > or = 20 years ??Desirable: ?>or= 60 mg/dL ??Low: ? <40 mg/dL Literature References: 1. Expert Panel on Integrated Guidelines for Cardiovascular Health and Risk Reduction in Children and Adolescents. Pediatrics 2011;128:S213 2. NCEP Expert Panel. Circulation 2004;110:227 Current Interpretive Data was last revised on 2017. LDL, calculated 128 <=129 mg/dL GLORIA Comment: Interpretive Data Ages < or = 19 years ??Acceptable: ? <110 mg/dL ??Borderline high: ??110-129 mg/dL ??High: ?>or= 130 mg/dL Ages > or = 20 years ??Optimal: ? <100 mg/dL ??Near optimal: ?100-129 mg/dL ??Borderline high: ?? 130-159 mg/dL ??High: ?>160 mg/dL Literature References: 1. Expert Panel on Integrated Guidelines for Cardiovascular Health and Risk Reduction in Children and Adolescents. Pediatrics 2011;128:S213 2. NCEP Expert Panel. Circulation 2004;110:227 Current Interpretive Data was last revised on 2017. Non-HDL Cholesterol 147 mg/dL GLORIA Comment: Interpretive Data Ages < or = 19 years ??Acceptable: ?<120 mg/dL ??Borderline high: ??120-144 mg/dL ??High: ?>145 mg/dL Ages > or = 20 years ??When triglycerides are >200 mg/dL, Non-HDL cholesterol is a secondary target of ? therapy with treatment goals that are 30 mg/dL greater than the LDL cholesterol target. ? Literature References: 1. Expert Panel on Integrated Guidelines for Cardiovascular Health and Risk Reduction in Children and Adolescents. Pediatrics 2011;128:S213 2. NCEP Expert Panel. Circulation 2004;110:227 Current Interpretive Data was last revised on 2017. Chol/HDL ratio 5 [facility] Blood 09/03/2023 2:00 PM CDT 09/03/2023 8:07 PM CDT Dena Moya NP LAB BLOOD ORDERABLES Final Resul t Performing Organization Address [facility] de Phone Number [facility] [address] [place] [address] * Hepatitis C antibody Blood (09/03/2023 2:00 PM CDT) Pathologist [facility] Hep C Ab Nonreactive Nonreactive Comment: Interpretive [...] 2:00 PM CDT 09/03/2023 8:07 PM CDT us Dena Moya NP LAB MICROBIOLOGY - GENERAL ORDER ANTHONY Final Result Performing Organization Address [facility] de Phone Number [facility] [address] [place] [address] * Hemoglobin A1c (09/03/2023 2:00 PM CDT) Pathologist [facility] Hgb A1C 5.5 4.0 - 5.6 % Estimated Average Glucose 111 mg/dL GLORIA Comment: The ADA recommends reporting an estimated Average Glucose (eAG) with all Hemoglobin A1c results using the equation derived from a study of 507 normal and diabetic adults. ??Minority populations were underrepresented and children were not included. ?? (Diabetes Care 31:7327-5974, 2007). ??The eAG is not equivalent to a fasting glucose. Blood 09/03/2023 2:00 PM CDT 09/03/2023 8:07 PM CDT us Dena Moya NP LAB BLOOD ORDERABLES Final Resul t [facility] [address] Department [place] [address] * (ABNORMAL) Comprehensive metabolic panel (09/03/2023 2:00 PM CDT) Sodium 142 135 - 145 mmol/L Potassium, pl 3.9 3.3 - 4.9 mmol/L [facility] Chloride 108 97 - 110 mmol/L [facility] CO2 21(L) 22 - 32 mmol/L [facility] Anion gap 13 2 - 15 mmol/L [facility] BUN 14 6 - 25 mg/dL [facility] Creatinine 0.84 0.60 - 1.10 mg/dL [facility] Glucose 83 70 - 199 mg/dL [facility] Comment: Interpretive Data Fasting glucose >/= 126 mg/dl is diagnostic for diabetes. ?? Fasting is defined as no caloric intake for at least 8 hours. Fasting glucose between 100 mg/dl to 125 mg/dl is diagnostic of prediabetes. In a patient with classic symptoms of hyperglycemia or hyperglycemic crisis, a random glucose >/= 200 mg/dl is diagnostic for diabetes. In the absence of unequivocal hyperglycemia, results should be confirmed by repeat testing. The classification and Diagnosis of Diabetes Diabetes Care 202; 46: S19-S40. Current interpretive data was last revised 2022. Calcium 9.2 8.5 - 10.3 mg/dL [facility] Bilirubin, total 0.3 0.1 - 1.2 mg/dL [facility] Protein, pl 7.4 6.5 - 8.5 g/dL [facility] Albumin 4.2 3.5 - 5.0 g/dL [facility] Alk phos 87 40 - 130 Units/L [facility] ALT 16 7 - 45 Units/L [facility] AST 22 10 - 45 Units/L [facility] Blood 09/03/2023 2:00 PM CDT 09/03/2023 8:07 PM CDT us Dena Moya RUSTIC FENCE BUILDER LAB BLOOD ORDERABLES Final Resul t Performing Organization Address [facility] [place] [address] [address] [place] [address] * CBC with auto differential (09/03/2023 2:00 PM CDT) [facility] WBC 6.2 3.8 - 9.9 K/cumm Hgb 14.3 11.9 - 15.5 g/dL [facility] Hct 43.4 35.6 - 45.5 % [facility] Plt 318 150 - 400 K/cumm [facility] MPV 10.1 9.1 - 12.3 fL [facility] RBC 4.90 3.90 - 5.20 M/cumm [facility] MCV 88.6 81.3 - 96.4 fL [facility] MCH 29.2 27.1 - 33.3 pg [facility] MCHC 32.9 32.3 - 35.7 g/dL [facility] RDW CV 12.3 11.1 - 14.9 % [facility] RDW SD 40.1 35.7 - 48.1 fL [facility] NRBC abs 0.00 0.00 - 0.01 K/cumm [facility] Blood 09/03/2023 2:00 PM CDT 09/03/2023 8:07 PM CDT us Dena Moya RUSTIC FENCE BUILDER LAB BLOOD ORDERABLES Final Resul t Performing Organization Address [facility] [place] [address] [place] [address] documented in this encounter Visit Diagnoses Diagnosis Attention deficit disorder, unspecified hyperactivity presence- Primary Bilateral lower abdominal cramping Functional diarrhea Orthostatic dizziness Encounter for screening examination for intermediate hyperglycemia and diabetes mellitus Encounter for hepatitis C screening test for low risk patient Cervical cancer screening Screening for malignant neoplasm of the cervix Lipid screening Screening for lipoid disorders Thyroid disorder screen Screening for thyroid disorder Vitamin D deficiency Class 3 severe obesity due to excess calories without serious comorbidity with body mass index (BMI) of 45.0 to 49.9 in adult (HCC) documented in this encounter Discontinued Medications Medication Sig Discontinue Reason Start Date End Da te dextroamphetamine-amphet amine XR (ADDERALL XR) 20 mg 24 hr capsule Take 1 capsule (20 mg total) by mouth every morning 09/03/2023 documented as of this encounter Historical Medications * This list may reflect changes made after this encounter. dextroamphetamine -amphetamine XR (ADDERALL XR) 20 mg 24 hr capsule Take 1 capsule (20 mg total) by mouth every morning 09/03/2023 added in this encounter Care Teams Director Technical Relationship Specialty Start Date End Date Dena Moya NP [address] [facility] [address] [place] [address] PCP - General Family Medicine 09/03/23 documented as of this encounter
--- OUTSIDE RECORDS SUMMARY | 2024-03-30 22:55 | XMS_ITS | Encounter Summary ---
Author Organization [facility] Address [address] [place] [address] Phone Care Team Providers Care Piercing Specialist Name Role Phone Ally Moreira Primary Care Provider + Reason for Visit * Reason Onset Date Comments Medication Refill 08/17/2023 Encounter Details Date Type Department Care Team (Late st Contact Info) Description 08/17/2023 MyChart RX Renewal [facility] - Family Medicine [facility] [address] [place] [address] Ally Moreira [address] [place] [address] Medication Renewal Reviewed Social History Tobacco Use Types Packs/Day Years Used Date Smoking Tobacco: Every Day Cigarettes Smokeless Tobacco: Never Alcohol Use Standard Drinks/Week Comments Yes 0 (1 standard drink = 0.6 oz pur e alcohol) on occasion PHQ-2 Answer Date Recorded Total Score - Questions 1-9 0 03/0 10/2023 Sexually Active Control Partners Comments Yes Comments No Sex and Gender Information Value Date Recorded Sex Assigned at Not on file Legal Sex Female 12:14 PM CDT Gender Identity Not on file Sexual Orientation Not on file documented as of this encounter Miscellaneous Notes * Telephone Encounter - Nel Schulte RN - 08/17/2023 1:31 PM CDT PDMP 07/17/23 Medication failed the protocol, provider to review and approve the medication order if appropriate. Requested Prescriptions Pending Prescriptions Disp Refills amphetamine-dextroamphetamine (Adderall XR) 20 MG CAPSULE SR 24 HR 30 Capsule 0 Sig: Take 1 Capsule by mouth every morning. Not Delegated - Off Protocol Failed - 08/17/2023 9:55 AM Failed - This refill cannot be delegated Passed - Visit with relevant provider in past 12 months or upcoming 90 days Recent Visits Date Type Provider Dept 06/18/23 Office Visit Ally Moreira PAC [facility] 01/16/23 Office Visit Ally Moreira PAC [facility] Showing recent visits within past 365 days and meeting all other requirements Future Appointments Date Type Provider Dept 08/27/23 Appointment Ally Moreira PAC [facility] Showing future appointments within next 90 days and meeting all other requirements documented in this encounter Plan of Treatment Not on file documented as of this encounter Visit Diagnoses Diagnosis Attention deficit disorder, unspecified hyperactivity presence documented in this encounter Additional Health Concerns Assessment Noted Time PHQ-9 Depression Total Score: 0 06/18/19 24 3:02 PM UNIVERSITY ARCHIVIST documented as of this encounter Care Teams Piercing Specialist Relationship Specialty Start Date End Date Ally Moreira [address] [place] [address] PCP - General Physician Electrical Superintendent 01/16/23 documented as of this encounter
--- OUTSIDE RECORDS SUMMARY | 2024-03-30 22:55 | XMS_ITS | Encounter Summary ---
Author Organization [facility] Healthcare Address [address] [place] [address] Care Team Providers Care Leak Hunter Name Role Phone Dena Myoa NP Primary Care Provider Encounter Details Date Type Department Care Team (Late st Contact Info) Description 09/08/2023 Orders Only [facility] Medical Group Primary Care at [address] [address] Dena Moya NP [address] [address] Social History Tobacco Use Types Packs/Day Years Used Date Smoking Tobacco: Never Smokeless Tobacco: Current PHQ-2 Answer Date Recorded PHQ-2 Total Score (If total score is 3 or more points, staff should administer the PHQ-9) 0 09/03/2023 Comments No Sex and Gender Information Value Date Recorded Sex Assigned at Not on file 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 Gender Identity Not on file Sexual Orientation Bisexual 12/03/2023 7: 02 AM CDT documented as of this encounter Ordered Prescriptions Prescription Sig Dispense Quantity Refills Last Filled Start Date End Date ergocalciferol (VITAMIN D) 50,000 unit capsule Take 1 capsule (50,000 Units total) by mouth once a week 12 capsule 1 09/08/2023 documented in this encounter Plan of Treatment Not on file documented as of this encounter Visit Diagnoses Not on filedocumented in this encounter Care Teams Leak Hunter Relationship Specialty Start Date End Date Dena Moya NP [address] [address] PCP - General Family Medicine 09/03/23 documented as of this encounter
--- OUTSIDE RECORDS SUMMARY | 2024-03-30 22:55 | XMS_ITS | Encounter Summary ---
Author Organization [employer] Care Team Providers Care Auction Assistant Name Role Phone Ally Moreira Primary Care Provider + Encounter Details Date Type Department Care Team (Latest Contact Info) Description 06/10/2023 Travel Social History Tobacco Use Types Packs/Day [...] on filedocumented in this encounter Care Teams Auction Assistant Relationship Specialty Start Date End Date Ally Moreira [address] [place] [address] PCP - General Physician Tile Molder Hand 01/16/23 documented as of this encounter
--- OUTSIDE RECORDS SUMMARY | 2024-03-30 22:55 | XMS_ITS | Encounter Summary ---
Author Organization [facility] Healthcare [place] [address] Care Team Providers Care Behavioral Pediatrician Name Role Phone Dena Moya NP Primary Care Provider [phone] Reason for Visit * Reason Onset Date Comments Lab Results 09/09/2023 Encounter Details Date Type Department Care Team (Late st Contact Info) Description 09/09/2023 Telephone [facility] Medical Group Primary Care at [address] [address] Dena Moya NP [address] [place] [address] [address] [place] [address] Lab Results Social History Tobacco Use Types Packs/Day Years Used Date Smoking Tobacco: Never Smokeless Tobacco: Current PHQ-2 Answer Date Recorded PHQ-2 Total Score (If total score is 3 or more points, staff should administer the PHQ-9) 0 09/03/2023 Comments No Sex and Gender Information Value Date Recorded Sex Assigned at Not on file 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 LMOM to contact the office back at [phone] Regarding: lab results Telephone task has been made. Please relay: Vitamin D quite low, sending in weekly supplement. Inflammatory markers negative, low suspicion for inflammatory bowel disease. Kidney, liver and thyroid function normal. Cholesterol well controlled and A1c normal. * Telephone Encounter - Jannie Coates MA - 09/09/2023 9:19 AM CDT ----- Message from Dena Moya NP sent at 09/08/2023 8:08 AM CDT ----- Vitamin D quite low, sending in weekly supplement. Inflammatory markers negative, low suspicion for inflammatory bowel disease. Kidney, liver and thyroid function normal. Cholesterol well controlled and A1c normal. documented in this encounter Plan of Treatment Not on file documented as of this encounter Visit Diagnoses Not on filedocumented in this encounter Care Teams Behavioral Pediatrician Relationship Specialty Start Date End Date Dena Moya NP [address] [address] PCP - General Family Medicine 09/03/23 documented as of this encounter
--- OUTSIDE RECORDS SUMMARY | 2024-03-30 22:55 | XMS_ITS | Encounter Summary ---
Author Organization [facility] Healthcare Address [address] [place] [address] Care Team Providers Care Shot Fireman Name Role Phone Ben Gill DO Primary Care Provider Reason for Visit * Reason Comments Back Pain Encounter Details Date Type Department Care Team (Late st Contact Info) Description 05/30/2017 7:13 PM TRIAGE SPECIALIST - 05/30/2017 9:03 PM TRIAGE SPECIALIST Emergency [facility] Emergency Department [address] [place] [address] Lan Eaton MD [address] [address] Chronic left-sided low back pain with left-sided sciatica (Primary Dx) Discharge Disposition: Discharge to home or self care Social History Tobacco Use Types Packs/Day Years Used Date Smoking Tobacco: Never Smokeless Tobacco: Never Comments No Sex and Gender Information Value Date Recorded Sex Assigned at Not on file Legal Sex Female 2:33 AM TRIAGE SPECIALIST Gender Identity Not on file Sexual Orientation Bisexual 12/03/2023 7: 02 AM CDT documented as of this encounter Last Filed Vital Signs Vital Sign Reading Time Taken Comments Blood Pressure 132/76 05/30/2017 8:13 PM TRIAGE SPECIALIST Pulse 76 05/30/2017 8:13 PM TRIAGE SPECIALIST Temperature 36.3 ??C (97.4 ??F) 05/30/2017 8:13 PM CS T Respiratory Rate 14 05/30/2017 8:13 PM TRIAGE SPECIALIST Oxygen Saturation 98% 05/30/2017 8:13 PM TRIAGE SPECIALIST Inhaled Oxygen Concentration - - Weight 104.3 kg (230 lb) 05/30/2017 7:26 PM TRIAGE SPECIALIST Height 157.5 cm (5' 2 ) 05/30/2017 7:26 PM TRIAGE SPECIALIST Body Mass Index 42.07 05/30/2017 7:26 PM TRIAGE SPECIALIST Body Mass Index Percentile 99.38% 05/30/2017 7:2 6 PM TRIAGE SPECIALIST Growth Chart: [facility] (Girls, 2- 20 Years) documented in this encounter Discharge Instructions * Attachments The following attachments cannot be sent through Care Everywhere. * Back Pain (Acute or Chronic) ([place]) * Sciatica ([place]) documented in this encounter Medications at Time of Discharge naproxen (NAPROSYN,ALEVE) 500 mg tabletIndications :Pain Take 1 tablet (500 mg total) by mouth 2 (two) times a day with meals. 30 tablet 05/30/2017 UNKNOWN TO PATIENTIndication s:pt reports taking lyrica and ultram for pain but does not know doses. documented as of this encounter Ordered Prescriptions Prescription Sig Dispense Quantity Refills Last Filled Start Date End Date naproxen (NAPROSYN,ALEVE) 500 mg tabletIndications:P ain Take 1 tablet (500 mg total) by mouth 2 (two) times a day with meals. 30 tablet 05/30/2017 documented in this encounter Discharge Disposition Disposition Code Departure Means Destination Comment s Discharge to home or self care ambulated from ED without complication. All questions addressed documented in this encounter ED Notes * Tu Nolasco PA - 05/30/2017 7:40 PM CST HPI Chief Complaint Patient presents with ??? Back Pain Patient is an 16-year-old female with a past medical history of left-sided low back pain and left sided sciatica presenting today with a chief complaint an exacerbation of her left-sided low back pain and sciatica. Patient states she has been seeing a a physician injuries refill for this condition who has prescribed her Lyrica and Ultram. Patient states she has had this condition for over 6 months but her pain has increased over last 3 days. Patient denies trauma, injury, unexplained weight loss, GI symptoms, symptoms, saddle anesthesia, numbness, paresthesia, fever, IV drug use, steroid use, or history of cancer. She rates her pain as a 10/10 in pain severity with a sharp character. Pain is aggravated with flexion at the waist and with walking. Patient states her back pain is identical in location and character pain as her previous episodes of low back pain and sciatica. Patient states she is currently on her menstrual period. Patient History There are no active problems to display for this patient. History reviewed. No pertinent past medical history. Past Surgical History: Procedure Laterality Date ??? OTHER SURGICAL HISTORY Oral surgery age 2 Family History Problem Relation Age of Onset ??? Other Mother Anesthesia reaction; ??? Hypertension Mother Hypertension; ??? Hypertension Father Hypertension; ??? Cancer Paternal Grandfather Cancer; ??? Cancer Paternal Grandmother Cancer; ??? Arthritis Father Arthritis; ??? Epilepsy Mother Epilepsy; Social History Substance Use Topics ??? Smoking status: Never Smoker ??? Smokeless tobacco: Never Used ??? Alcohol use Not on file Social History Social History Narrative ??? No narrative on file Review of Systems Review of Systems Constitutional: Negative for chills and fever. HENT: Negative for sore throat. Eyes: Negative for photophobia, pain and visual disturbance. Respiratory: Negative for cough and shortness of breath. Cardiovascular: Negative for chest pain and palpitations. Gastrointestinal: Negative for abdominal pain, constipation, diarrhea, nausea and vomiting. Genitourinary: Negative for decreased urine volume, difficulty urinating, dysuria, flank pain and frequency. Musculoskeletal: Positive for back pain. Negative for gait problem, neck pain and neck stiffness. Skin: Negative for color change and rash. Neurological: Negative for dizziness, syncope, weakness, numbness and headaches. All other systems reviewed and are negative. Physical Exam ED Triage Vitals [05/30/171925] Temp Pulse Resp BP SpO2 (!) 35.7 ??C (96.2 ??F) 82 18 140/69 100 % Temp src Heart Rate Source Patient Position BP Location FiO2 (%) Tympanic -- -- -- -- Physical Exam Constitutional: She appears well-developed and well-nourished. No distress. HENT: Head: Normocephalic and atraumatic. Nose: Nose normal. Mouth/Throat: Oropharynx is clear and moist. No oropharyngeal exudate. Eyes: Conjunctivae are normal. Pupils are equal, round, and reactive to light. Right eye exhibits no discharge. Left eye exhibits no discharge. Neck: Normal range of motion. Neck supple. Cardiovascular: Normal rate, regular rhythm, normal heart sounds and intact distal pulses. No murmur heard. Pulmonary/Chest: Effort normal and breath sounds normal. No respiratory distress. She has no wheezes. She has no rales. Abdominal: Soft. There is no tenderness. Musculoskeletal: Normal range of motion. She exhibits no edema. SPINE EXAM: full active range of motion throughout spine although pain reproduced in exact location, severity, and type in left lumbar region with bending at waist; pain with palpation over the left lumbar musculature region; No pain to palpation or percussion of spine and without step-off, deformity, ecchymosis, erythema, warmth, or swelling; Positive straight leg raise test with left leg; DTRs intact; intact distal pulse, motor, and sensory throughout. Neurological: She is alert. Skin: Skin is warm and dry. Capillary refill takes less than 2 seconds. No rash noted. Psychiatric: She has a normal mood and affect. Nursing note and vitals reviewed. ED Course & MDM ED Course as of May 30 2049 Sat May 30, 20172047 Diagnosis and treatment plan discussed with patient. Patient instructed to follow up with PCP for continued symptoms. All questions answered. Patient instructed to return to ED for new or worsening symptoms. Patient verbalized understanding. [BM] 2047 Lab results reviewed with patient. [BM] 2047 Pre-hypertension/Hypertension: The patient has been informed that they may have pre-hypertension or Hypertension based on a blood pressure reading in the Emergency Department. I recommend that the patient call the primary care provider listed on their discharge instructions or a physician of their choice this week to arrange follow up for further evaluation of possible pre- hypertension or Hypertension. BP: 140/69 [BM] ED Course User Index [BM] NALINI Zavaleta MDM Chronic left-sided low back pain with left-sided sciatica NALINI Zavaleta 05/30/172049 Cosigned by Lan Eaton MD at 05/30/2017 11:45 PM TRIAGE SPECIALIST GE SPECIALIST GE SPECIALIST * Julienne Chong RN - 05/30/2017 7:27 PM CST Pt reports having left sciatic pain x 6 months with an exacerbation over the last 3 days. Pt reports that she sees an MD in [place] who prescribed her Lyrica and Ultram. Pt reports the prescribedmedications are not helping. Sensation and circulation are intact to the bilateral lower extremities. Pt denies any additional symptoms at this time. GE SPECIALIST documented in this encounter Plan of Treatment Not on file documented as of this encounter Procedures Procedure Name Priority Date/Time Associated Diagnosis Comments URINALYSIS AND REFLEX TO MICROSCOPIC STAT 05/30/2017 8:37 PM TRIAGE SPECIALIST DISCHARGE LABORATORY CUMULATIVE REPORT 05/30/2017 12:00 AM TRIAGE SPECIALIST documented in this encounter Results * (ABNORMAL) Urinalysis reflex to microscopic (05/30/2017 8:37 PM TRIAGE SPECIALIST) Color, ur Yellow Yellow [facility] ([facility]) Clarity, ur Clear Clear [facility] ([facility]) Specific gravity, ur >1.030(A) 1.003 - 1.030 [facility] ([facility]) Comment:Normal Ranges: 1.003 -1.030 pH, ur 6.0 4.5 - 8.0 [facility] ([facility]) Comment:Normal ranges: 4.5-8 .0 Protein, ur ql Negative Negative mg/dL [facility] ([facility]) Glucose, ur ql Negative Negative mg/dL [facility] ([facility]) Ketones, ur Negative Negative [facility] ([facility]) Bilirubin, ur Negative Negative [facility] ([facility]) Blood, ur Moderate(A) Negative [facility] ([facility]) Urobilinogen, ur 1.0 0.2 - 1.0 EhrUnit/dL [facility] ([facility]) Comment:Normal Ranges: 0.2-1 .0 EU/dL Nitrites, ur Negative Negative [facility] ([facility]) Leukocyte esterase, ur Negative Negative [facility] ([facility]) Urine 05/30/2017 8:37 PM TRIAGE SPECIALIST 05/30/2017 8:39 PM TRIAGE SPECIALIST Narrative GLORIA CANALES ([facility]) - 05/30/2017 8:43 PM TRIAGE SPECIALIST Tu GAYLE LAB URINE ORDERABLES Fi nal Result GLORIA CANALES (ADIS) 1 [facility] Department [place] [address] * DISCHARGE LABORATORY CUMULATIVE REPORT (05/30/2017 12:00 AM TRIAGE SPECIALIST) Narrative 05/30/2017 12:00 AM TRIAGE SPECIALIST Ordered by an unspecified provider. Historical Provider LAB BLOOD ORDERABLES Jennifer l Result documented in this encounter Visit Diagnoses Diagnosis Chronic left-sided low back pain with left-sided sciatica- Primary documented in this encounter Administered Medications Inactive Administered Medications - up to 3 most recent administrations Medication Order MAR Action Action Date Dose Rate Site ketorolac (TORADOL) intramuscular injection 30 mg 30 mg, intramuscular, Once, On 05/30/17 at 1945, For 1 dose Given 05/30/2017 8:13 PM TRIAGE SPECIALIST 30 mg Right Deltoid documented in this encounter Historical Medications * This list may reflect changes made after this encounter. Medication Sig Dispense Quantity Refills Last Filled Start D ate End Date UNKNOWN TO PATIENTIndications:pt reports taking lyrica and ultram for pain but does not know doses. added in this encounter Active and Recently Administered Medications Times are shown in TRIAGE SPECIALIST. Scheduled Medication Order 05/28/2017 05/29/2017 05/30/2017 ketorolac (TORADOL) intramuscular injection 30 mg (COMPLETED) 30 mg, intramuscular, Once, On 05/30/17 at 1945, For 1 dose 2012 (Given - Provid er: Julienne Chong RN) documented in this encounter Care Teams Shot Fireman Relationship Specialty Start Date End Date Ben Gill DO PCP - General 12/03/11 09/02/23 documented as of this encounter
--- OUTSIDE RECORDS SUMMARY | 2024-03-30 22:55 | XMS_ITS | Encounter Summary ---
Author Organization [facility] Healthcare Address [address] [place] [address] Care Team Providers Care Investment Associate Name Role Phone Dena Moya NP Primary Care Provider [phone] Reason for Visit * Reason Comments Follow-up Pt states for 4 week follow up. Pt states she feels she is doing great on the medication. Encounter Details Date Type Department Care Team (Latest Contact Info) Description 11/19/2023 2:30 PM CDT Office Visit [facility] Medical Group Primary Care at [address] [address] Dena Moya NP [address] [place] [address] [address] [place] [address] Attention deficit disorder, unspecified hyperactivity presence (Primary Dx) Social History Tobacco Use Types Packs/Day Years Used Date Smoking Tobacco: Never Smokeless Tobacco: Current PHQ-2 Answer Date Recorded PHQ-2 Total Score (If total score is 3 or more points, staff should administer the PHQ-9) 0 11/19/2023 Comments No Sex and Gender Information Value Date Recorded Sex Assigned at Not on file 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 Gender Identity Not on file Sexual Orientation Bisexual 12/03/2023 7: 02 AM CDT documented as of this encounter Last Filed Vital Signs Vital Sign Reading Time Taken Comments Blood Pressure 110/72 11/19/2023 1:01 PM CDT Pulse 72 11/19/2023 1:01 PM CDT Temperature 36.8 ??C (98.2 ??F) 11/19/2023 1:01 PM CD T Respiratory Rate - - Oxygen Saturation 99% 11/19/2023 1:01 PM CDT Inhaled Oxygen Concentration - - Weight 118.8 kg (262 lb) 11/19/2023 1:01 PM CDT Height 157.5 cm (5' 2 ) 11/19/2023 1:01 PM CDT Body Mass Index 47.92 11/19/2023 1:01 PM CDT documented in this encounter Patient Instructions * Patient Instructions* Dena Moya NP - 11/19/2023 2:30 PM CDT Patient to trial on Vital Proteins Collagen Peptides one capful a day to help with joints documented in this encounter Progress Notes * Dena Moya NP - 11/19/2023 2:30 PM CDT Images from the original note were not included. Patient ID: Danyell Edwards is a 23 y.o. female. Assessment/Plan Diagnoses and all orders for this visit: Attention deficit disorder, unspecified hyperactivity presence (Primary) Assessment & Plan: Much improved on Adderall 15 mg BID. No side effects, will continue. Follow up 6 Months Chief Complaint Follow-up (Pt states for 4 week follow up. Pt states she feels she is doing great on the medication. ) Patient here for 4 week ADD follow up. At previous visit we increased patient's Adderall to 15 mg BID. Review of Systems Respiratory: Negative for shortness of breath. Cardiovascular: Negative for chest pain. Musculoskeletal: Positive for arthralgias. Psychiatric/Behavioral: Negative for suicidal ideas. BP 110/72 (BP Location: Right arm, Patient Position: Sitting) Pulse 72 Temp 36.8 ??C (98.2 ??F)(Temporal) Ht 157.5 cm (5' 2 ) Wt 118.8 kg (262 lb) SpO2 99% BMI 47.92 kg/m?? Physical Exam Constitutional: Appearance: Normal appearance. HENT: Head: Normocephalic. Right Ear: External ear normal. Left Ear: External ear normal. Eyes: Extraocular Movements: Extraocular movements intact. Pulmonary: Effort: Pulmonary effort is normal. Neurological: General: No focal deficit present. Mental Status: She is alert and oriented to person, place, and time. Psychiatric: Mood and Affect: Mood normal. Behavior: Behavior normal. Dena Moya NP documented in this encounter Miscellaneous Notes * Assessment & Plan Note - Dena Moya NP - 11/19/2023 2:00 PM CDTAssociated Problem(s): Attention deficit disorder Much improved on Adderall 15 mg BID. No side effects, will continue. documented in this encounter Plan of Treatment Not on file documented as of this encounter Visit Diagnoses Diagnosis Attention deficit disorder, unspecified hyperactivity presence- Primary documented in this encounter Discontinued Medications Medication Sig Discontinue Reason Start Date End Da te celecoxib (CeleBREX) 100 mg capsule Take 1 capsule (100 mg total) by mouth 2 (two) times a day as needed for pain 10/22/2023 11/19/2023 documented as of this encounter Care Teams Investment Associate Relationship Specialty Start Date End Date Dena Moya NP [address] [address] PCP - General Family Medicine 09/03/23 documented as of this encounter
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
--- OUTSIDE RECORDS SUMMARY | 2024-03-30 22:55 | XMS_ITS | Encounter Summary ---
Author Organization [facility] Healthcare Address [address] [place] [address] Care Team Providers Care Skilled Nursing Facility Counselor Name Role Phone Dena Moya NP Primary Care Provider [phone] Reason for Visit * Reason Comments Follow-up Pt states for medica tion follow up. Pt states she likes the 10mg and it worked great at first but now she can't really tell. Encounter Details Date Type Department Care Team (Latest Contact Info) Description 10/22/2023 1:00 PM CDT Office Visit [facility] Medical Group Primary Care at [address] [address] Dena Moya NP [address] [place] [address] [address] [place] [address] Attention deficit disorder, unspecified hyperactivity presence (Primary Dx); Arthralgia of multiple joints; Class 3 severe obesity due to excess calories without serious comorbidity with body mass index (BMI) of 45.0 to 49.9 in adult (HCC) Social History Tobacco Use Types Packs/Day Years Used Date Smoking Tobacco: Never Smokeless Tobacco: Current PHQ-2 Answer Date Recorded PHQ-2 Total Score (If total score is 3 or more points, staff should administer the PHQ-9) 0 10/22/2023 Comments No Sex and Gender Information Value Date Recorded Sex Assigned at Not on file Legal Sex Female 2:33 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 Gender Identity Not on file Sexual Orientation Bisexual 12/03/2023 7: 02 AM CDT documented as of this encounter Last Filed Vital Signs Vital Sign Reading Time Taken Comments Blood Pressure 104/78 10/22/2023 1:05 PM CDT Pulse 97 10/22/2023 1:05 PM CDT Temperature 36.6 ??C (97.9 ??F) 10/22/2023 1:05 PM CD T Respiratory Rate - - Oxygen Saturation 99% 10/22/2023 1:05 PM CDT Inhaled Oxygen Concentration - - Weight 119.3 kg (263 lb) 10/22/2023 1:05 PM CDT Height 157.5 cm (5' 2 ) 10/22/2023 1:05 PM CDT Body Mass Index 48.1 10/22/2023 1:05 PM CDT documented in this encounter Ordered Prescriptions Prescription Sig Dispense Quantity Refills Last Filled Start Date End Date clindamycin (CLEOCIN T) 1 % gel Apply to affected area once daily as needed. 180 g 4 10/22/2023 5 celecoxib (CeleBREX) 100 mg capsule Take 1 capsule (100 mg total) by mouth 2 (two) times a day as needed for pain 60 capsule 1 10/22/2023 4 dextroamphetamine- amphetamine (ADDERALL) 15 mg tablet Take 1 tablet (15 mg total) by mouth 2 (two) times a day 60 tablet 10/22/2023 4 documented in this encounter Progress Notes * Dena Moya NP - 10/22/2023 1:00 PM CDT Images from the original note were not included. Patient ID: Danyell Edwards is a 23 y.o. female. Assessment/Plan Diagnoses and all orders for this visit: Attention deficit disorder, unspecified hyperactivity presence (Primary) Assessment & Plan: Improvement was noted but not at goal, will increase to 15 mg BID. Denies any adverse side effects. Arthralgia of multiple joints Comments: Celebrex trial Class 3 severe obesity due to excess calories without serious comorbidity with body mass index (BMI) of 45.0 to 49.9 in adult (HCC) Comments: Discussed incorporating intentional activity into regimen. Other orders - dextroamphetamine-amphetamine (ADDERALL) 15 mg tablet; Take 1 tablet (15 mg total) by mouth 2 (two) times a day - clindamycin (CLEOCIN T) 1 % gel; Apply to affected area once daily as needed. - celecoxib (CeleBREX) 100 mg capsule; Take 1 capsule (100 mg total) by mouth 2 (two) times a day as needed for pain Follow up 1 Month Chief Complaint Follow-up (Pt states for medication follow up. Pt states she likes the 10mg and it worked great at first but now she can't really tell.) Patient here for ADD follow up. At previous visit we switched patient's Adderall 20 mg XR to 10 mg BID immediate release due to patient experiencing medication was taking too long to kick in and lasting too long/affecting sleep. Also notes multiple, bilateral joint arthralgias that are chronic in nature. Also neck and back pain. Worse after being on feet all day. Pain is throbbing and aching. Review of Systems Respiratory: Negative for shortness of breath. Cardiovascular: Negative for chest pain. Musculoskeletal: Positive for arthralgias and back pain. Psychiatric/Behavioral: Negative for suicidal ideas. BP 104/78 (BP Location: Right arm, Patient Position: Sitting) Pulse 97 Temp 36.6 ??C (97.9 ??F)(Temporal) Ht 157.5 cm (5' 2 ) Wt 119.3 kg (263 lb) SpO2 99% BMI 48.10 kg/m?? Physical Exam Constitutional: Appearance: Normal appearance. HENT: Head: Normocephalic. Right Ear: External ear normal. Left Ear: External ear normal. Eyes: Extraocular Movements: Extraocular movements intact. Cardiovascular: Rate and Rhythm: Normal rate and regular rhythm. Heart sounds: Normal heart sounds. Pulmonary: Effort: Pulmonary effort is normal. Breath sounds: Normal breath sounds. Skin: General: Skin is warm and dry. Neurological: General: No focal deficit present. Mental Status: She is alert and oriented to person, place, and time. Psychiatric: Mood and Affect: Mood normal. Behavior: Behavior normal. Dena Moya NP documented in this encounter Miscellaneous Notes * Assessment & Plan Note - Dena Moya NP - 10/22/2023 2:45 PM CDTAssociated Problem(s): Attention deficit disorder Improvement was noted but not at goal, will increase to 15 mg BID. Denies any adverse side effects. documented in this encounter Plan of Treatment Not on file documented as of this encounter Visit Diagnoses Diagnosis Attention deficit disorder, unspecified hyperactivity presence- Primary Arthralgia of multiple joints Pain in joint, multiple sites Class 3 severe obesity due to excess calories without serious comorbidity with body mass index (BMI) of 45.0 to 49.9 in adult (HCC) documented in this encounter Discontinued Medications Medication Sig Discontinue Reason Start Date End Da te dextroamphetamine-amphet amine (ADDERALL) 10 mg tablet Take 1 tablet (10 mg total) by mouth 2 (two) times a day 09/03/2023 10/22/2023 documented as of this encounter Care Teams Skilled Nursing Facility Counselor Relationship Specialty Start Date End Date Dena Moya NP [address] [facility] [address] [place] [address] PCP - General Family Medicine 09/03/23 documented as of this encounter
--- OUTSIDE RECORDS SUMMARY | 2024-03-30 22:55 | XMS_ITS | Encounter Summary ---
Author Organization [facility] Care Team Providers Care Gas Booster Engineer Name Role Phone Ally Moreira Primary Care Provider + Encounter Details Date Type Department Care Team (Latest Contact Info) Description 01/16/2023 Travel Social History Tobacco Use Types Packs/Day [...] on file Sexual Orientation Not on file COVID-19 Exposure Response Date Recorded In the last 10 days, have yo u been in contact with someone who was confirmed or suspected to have Coronavirus/COVID-19? No / Unsure 01/16/2023 11:00 AM CDT documented as of this encounter Functional Status * Question Answer Date of Assessment Author Little interest or pleasure in doing things Not at all 01/16/2023 11:21 AM ADELIAT Rosie Strange CMA Feeling down, depressed, or hopeless Not at all 01/16/2023 11:21 AM ADELIAT Rosie Strange CMA * Over the past 2 weeks, how often have you been bothered by any of the following problems? Question Answer Date of Assessment Author Patient Health Questionnaire -2 Score 0 01/16/2023 11:21 AM CDRosie Fisehr CMA documented as of this encounter Plan of Treatment Not on file documented as of this encounter Visit Diagnoses Not on filedocumented in this encounter Care Teams Gas Booster Engineer Relationship Specialty Start Date End Date Ally Moreira, [address] [place] [address] PCP - General Physician Barrel Rib Matting Machine Operator 01/16/23 documented as of this encounter
--- OUTSIDE RECORDS SUMMARY | 2024-03-30 22:55 | XMS_ITS | Encounter Summary ---
Author Organization [facility] Healthcare Address [address] [place] [address] Care Team Providers Care Boot And Shoe Laborer Name Role Phone Unavailable Primary Care Provider Unavailabl e Encounter Details Date Type Department Care Team (Late st Contact Info) Description 11/16/2008 9:38 PM CDT - 11/16/2008 10:30 PM CDT Hospital Encounter [facility] Miller Langford MD [address] [facility] [address] [place] [address] Ben Gill, DO [address] [place] [address] Open wound of lip; Dog bite; Place of occurrence, home Social History Tobacco Use Types Packs/Day Years Used Date Smoking Tobacco: Never Assessed Comments Unknown Sex and Gender Information Value Date Recorded Sex Assigned at Not on file 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
--- OUTSIDE RECORDS SUMMARY | 2024-03-30 22:55 | XMS_ITS | Encounter Summary ---
Author Organization [facility] Healthcare Address [address] [place] [address] Care Team Providers Care Truckman Name Role Phone Dena Moya NP Primary Care Provider Encounter Details Date Type Department Care Team (Late st Contact Info) Description 09/03/2023 2:30 PM CDT Lab [facility] Medical Group Outpatient Lab at [address] [address] Abdominal pain, right lower quadrant (Primary Dx); Abdominal pain, left lower quadrant; Functional diarrhea; Screening for diabetes mellitus; Screening examination for poliomyelitis; Screening for lipoid disorders; Screening for thyroid disorder; Avitaminosis D Social History Tobacco Use Types Packs/Day Years Used Date Smoking Tobacco: Never Smokeless Tobacco: Current PHQ-2 Answer Date Recorded PHQ-2 Total Score (If total score is 3 or more points, staff should administer the PHQ-9) 0 09/03/2023 Comments No Sex and Gender Information Value Date Recorded Sex Assigned at Not on file 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 Sex Female 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 Gender Identity Not on file Sexual Orientation Bisexual 12/03/2023 7: 02 AM CDT documented as of this encounter Plan of Treatment Not on file documented as of this encounter Visit Diagnoses Diagnosis Abdominal pain, right lower quadrant- Primary Abdominal pain, left lower quadrant Functional diarrhea Screening for diabetes mellitus Screening examination for poliomyelitis Screening for lipoid disorders Screening for thyroid disorder Avitaminosis D Unspecified vitamin D deficiency documented in this encounter Care Teams Truckman Relationship Specialty Start Date End Date Dean Moya NP [address] [place] [address] [address] [place] [address] PCP - General Family Medicine 09/03/23 documented as of this encounter
--- OUTSIDE RECORDS SUMMARY | 2024-03-30 22:55 | XMS_ITS | Encounter Summary ---
Author Organization [facility] Healthcare Address [address] [place] [address] Care Team Providers Care Hardwood Finisher Name Role Phone Dena Moya NP Primary Care Provider [phone] Reason for Visit * Reason Comments Gynecologic Exam * Consultation (Routine) - Closed Specialty Diagnoses / Procedures Referred By Contac t Referred To Contact Obstetrics and Gynecology Diagnoses Cervical cancer screening Dena Moya NP [address] [place] [address] Phone: tel: fax: [facility] Medical Group [facility] Care at [address] [address] Phone: tel: fax: Referral ID Status Reason Start Date Expiration Date V isits Requested Visits Authorized [id number] Closed Specialty Services Required 09/03/2023 10/02/2024 1 1 Encounter Details Date Type Department Care Team (Late st Contact Info) Description 12/03/2023 9:15 AM CDT Office Visit Sylvain Davidson [address] [place] [address] [address] [place] [id number] Radha Delgadillo NP [address] [place] [address] [address] [address] Well woman exam (Primary Dx); Cervical cancer screening; Screening for STD (sexually transmitted disease) Social History Tobacco Use Types Packs/Day Years Used Date Smoking Tobacco: Never Smokeless Tobacco: Current PHQ-2 Answer Date Recorded PHQ-2 Total Score (If total score is 3 or more points, staff should administer the PHQ-9) 0 12/03/2023 Comments No Sex and Gender Information Value Date Recorded Sex Assigned at Not on file 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 Sex Female 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 Gender Identity Not on file Sexual Orientation Bisexual 12/03/2023 7: 02 AM CDT documented as of this encounter Last Filed Vital Signs Vital Sign Reading Time Taken Comments Blood Pressure 118/78 12/03/2023 9:31 AM CDT Pulse - - Temperature - - Respiratory Rate - - Oxygen Saturation - - Inhaled Oxygen Concentration - - Weight 121.6 kg (268 lb) 12/03/2023 9:31 AM CDT Height 157.5 cm (5' 2 ) 12/03/2023 9:31 AM CDT Body Mass Index 49.02 12/03/2023 9:31 AM CDT documented in this encounter Progress Notes * Radha Delgadillo, SURVEY CHIEF - 12/03/2023 9:15 AM CDT Images from the original note were not included. Well Woman Exam Subjective: Pateint presents for: Gynecologic Exam Danyell Edwards is a 23 y.o. year old female who presents for a well woman exam. This willbe Danyell's first pap/pelvic exam. She is and in a monogamous relationship. She has history of irregular menstrual cycles. States she does have a cycle at least every other month - never goes longer than 2 months without menses. States cycles are not problematic at this time. She states she does get painful boil-like lesions in her groin since 2018. Does use Cleocin T topically as needed. She feels she may have hidradenitis suppurativa, but has not been clinically diagnosed. I Contraception:None. Patient's last menstrual period was 11/24/2023. Past Medical History: Diagnosis Date ADHD (attention deficit hyperactivity disorder) Anxiety Depression Current Outpatient Medications: ALPRAZolam (XANAX) 0.5 mg tablet, TAKE 1 TABLET BY MOUTH THE NIGHT BEFORE APPOINTMENT THEN 1 TABLETBY MOUTH ONE HOUR PRIOR TO APPOINTMENT, Disp: , Rfl: clindamycin (CLEOCIN T) 1 % gel, Apply to affected area once daily as needed., Disp: 180 g, Rfl: 4 dextroamphetamine-amphetamine (ADDERALL) 15 mg tablet, Take 1 tablet (15 mg total) by mouth 2 (two)times a day, Disp: 60 tablet, Rfl: 0 dicyclomine (BENTYL) 20 mg tablet, Take 1 tablet (20 mg total) by mouth every 6 (six) hours as needed (abdominal cramping), Disp: 30 tablet, Rfl: 1 ergocalciferol (VITAMIN D) 50,000 unit capsule, Take 1 capsule (50,000 Units total) by mouth once aweek, Disp: 12 capsule, Rfl: 1 naproxen (NAPROSYN,ALEVE) 500 mg tablet, Take 1 tablet (500 mg total) by mouth 2 (two) times a day with meals. (Patient not taking: Reported on 09/03/2023), Disp: 30 tablet, Rfl: 0 UNKNOWN TO PATIENT, , Disp: , Rfl: Allergies Allergen Reactions Pregabalin Other (See comments) and Palpitations Dizzy and passes out Per patient and her former doctors office Review of Systems Genitourinary: Negative for dysuria, frequency, hematuria, menstrual problem, pelvic pain, vaginal bleeding, vaginal discharge and vaginal pain. Psychiatric/Behavioral: The patient is nervous/anxious. Breast: Negative for tenderness, breast redness, breast discharge and lump(s). Objective: BP 118/78 (BP Location: Right arm, Patient Position: Sitting) Ht 157.5 cm (5' 2 ) Wt 268 lb (121.6 kg) LMP 11/24/2023 BMI 49.02 kg/m?? Physical Exam Constitutional: Appearance: Normal appearance. Cardiovascular: Rate and Rhythm: Normal rate and regular rhythm. Pulmonary: Effort: Pulmonary effort is normal. Breath sounds: Normal breath sounds. Chest: Breasts: Right: No swelling, bleeding, inverted nipple, mass, nipple discharge, skin change or tenderness. Left: No swelling, bleeding, inverted nipple, mass, nipple discharge, skin change or tenderness. Genitourinary: Pubic Area: No rash. Labia: Right: No rash, tenderness, lesion or injury. Left: No rash, tenderness, lesion or injury. Urethra: No prolapse, urethral pain, urethral swelling or urethral lesion. Vagina: No foreign body. Bleeding (end of menstrual cycle) present. No vaginal discharge, erythema,tenderness, lesions or prolapsed vaginal leone. Cervix: No cervical motion tenderness, discharge, friability, lesion, erythema or cervical bleeding. Uterus: Not enlarged, not tender and no uterine prolapse. Adnexa: Right: No mass, tenderness or fullness. Left: No mass, tenderness or fullness. Lymphadenopathy: Upper Body: Right upper body: No axillary or pectoral adenopathy. Left upper body: No axillary or pectoral adenopathy. Skin: General: Skin is warm and dry. Assessment and Plan: Normal exam. Diagnoses and all orders for this visit: Well woman exam (Primary) Comments: Encouraged yearly WWE. Discussed current recommendations and guidelines for breast/cervical cancer screening. Orders: - Pap, reflex HPV; Future - N. gonorrhoeae/C. trachomatis Amplification Thin prep-Endocervical; Future Cervical cancer screening - Ambulatory referral to Obstetrics / Gynecology Screening for STD (sexually transmitted disease) - N. gonorrhoeae/C. trachomatis Amplification Thin prep-Endocervical; Future Recommended screenings and preventive care discussed: Breast cancer: Breast Self Exam encouraged. Low fat, low carbohydrate diet and exercise encouraged. Pap with reflex done. MVI daily recommended and cholesterol followed by PCP. Contraceptive options discussed. Return in about 1 year (around 12/02/2024) for Well Woman exam and as needed. Radha Delgadillo NP 12/03/2023 documented in this encounter Plan of Treatment Not on file documented as of this encounter Procedures Procedure Name Priority Date/Time Associated Diagnosis Comments PAP, REFLEX HPV Routine 12/03/2023 10:44 AM CDT Well woman exam N. GONORRHOEAE/C. TRACHOMATIS AMPLIFICATION Routine 12/03/2023 10:44 AM CDT Well woman exam Screening for STD (sexually transmitted disease) documented in this encounter Results * N. gonorrhoeae/C. trachomatis Amplification Thin prep-Endocervical (12/03/2023 10:44 AM CDT) C. trachomatis RNA NOT DETECTED NOT DETECTED [facility] N. gonorrhoeae RNA NOT DETECTED NOT DETECTED [facility] Comment [facility] Comment: The analytical performance characteristics of this assay, when used to test SurePath(TM) specimens have been determined by [facility]. The modifications have not been cleared or approved by the FDA. This assay has been validated pursuant to the CLIA regulations and is used for clinical purposes. For additional information, please refer to https://education.[employer]/faq/EAC624 (This link is being provided for information/ educational purposes only.) Thin prep-Endocervica l (None) 12/03/2023 10:44 AM CDT 12/04/2023 1:10 AM CDT Radha Delgadillo NP LAB MICROBIOLOGY - GENERAL ORDER ANTHONY Final Result SUR[facility] [id number] [place] [id number] * Pap, reflex HPV (12/03/2023 10:44 AM CDT) CLINICAL INFORMATION: Suraj Murcia Comment:Routine exam LMP Suraj Murcia Comment:[id number] Previous Pap Suraj Murcia Comment:None given Prev. Bx Suraj Murcia Comment:None given SOURCE: Suraj Murcia Comment:Cervix, Endocervix Pap, specimen adequacy Suraj Murcia Comment: Satisfactory for evaluation. Endocervical/transformation zone component present. HPV interp Suraj Murcia Comment: Cytology Results: Negative for intraepithelial lesion or malignancy. Infection: Suraj Murcia Comment: Shift in vaginal beau suggestive of bacterial vaginosis. COMMENTS Suraj Murcia Comment: This Pap test has been evaluated with computer assisted technology. Carry All Driver Margarito Lozano Comment: BKDanny CT(ASCP) CT screening location: [facility] [address] [place] [address] Comment Suraj Murcia Comment: EXPLANATORY NOTE: The Pap is [...] 4 AM CDT 12/04/2023 1:10 AM CDT us Radha Delgadillo NP LAB CYTOLOGY ORDERABLES Final Re sult [facility] [address] [place] [address] documented in this encounter Visit Diagnoses Diagnosis Well woman exam- Primary Routine general medical examination at a [facility] Cervical cancer screening Screening for malignant neoplasm of the cervix Screening for STD (sexually transmitted disease) documented in this encounter Historical Medications * This list may reflect changes made after this encounter. ALPRAZolam (XANAX) 0.5 mg tablet TAKE 1 TABLET BY MOUTH THE NIGHT BEFORE APPOINTMENT THEN 1 TABLET BY MOUTH ONE HOUR PRIOR TO APPOINTMENT 09/10/2023 4 added in this encounter Orders Outpatient Referral Count Last Ordered Date Fir st Ordered Date AMB REFERRAL TO OB-FIRE EXTINGUISHER TESTER 1 12/03/2023 documented in this encounter Care Teams Hardwood Finisher Relationship Specialty Start Date End Date Dena Moya NP [address] [facility] [address] [place] [address] PCP - General Family Medicine 09/03/23 documented as of this encounter
--- OUTSIDE RECORDS SUMMARY | 2024-03-30 22:55 | XMS_ITS | Encounter Summary ---
Author Organization [facility] Address [address] [facility] [place] [place] [address] Phone Care Team Providers Care Bilingual Speech Language Pathologist Name Role Phone Ally Moreira Primary Care Provider + Reason for Visit * Reason Onset Date Comments Medication Refill 07/17/2023 Encounter Details Date Type Department Care Team (Late st Contact Info) Description 07/17/2023 MyChart RX Renewal [facility] - Family Medicine [facility] [address] [place] [address] Ally Moreira [address] [place] [address] Medication Renewal Reviewed Social History Tobacco Use [...] Telephone Encounter - Nel Schulte RN - 07/17/2023 5:00 PM CDT Pharmacy notified to cancel old Rx on new Rx. Disp Refills Start End amphetamine-dextroamphetamine (Adderall XR) 20 MG CAPSULE SR 24 HR 30 Capsule 0 07/17/2023 -- Sig - Route: Take 1 Capsule by mouth every morning. - Oral Sent to pharmacy as: Amphetamine-Dextroamphet ER 20 MG Oral Capsule Extended Release 24 Hour (Adderall XR) Class: E Prescribe Earliest Fill Date: 07/17/2023 Notes to Pharmacy: Written notation of quantity: thirty Cancel previous script of adderall 10 mg E-Prescribing Status: Receipt confirmed by pharmacy (07/17/2023 4:49 PM CDT) Associated Diagnoses Attention deficit disorder, unspecified hyperactivity presence - Primary Pharmacy [id number] - [place], [place] - [address] [facility] * Telephone Encounter - Nel Schulte RN - 07/17/2023 1:56 PM CDT PDMP 06/18/23 From patient message - is she suppose to be taking 2 capsules every AM - quantity #60? To adjust written quantity on Rx or pharmacy will not fill if quantity is increased Medication failed the protocol, provider to review and approve the medication order if appropriate. Requested Prescriptions Pending Prescriptions Disp Refills amphetamine-dextroamphetamine (Adderall XR) 10 MG CAPSULE SR 24 HR 30 Capsule 0 Sig: Take 1 Capsule by mouth every morning. Not Delegated - Off Protocol Failed - 07/17/2023 10:44 AM Failed - This refill cannot be delegated Passed - Visit with relevant provider in past 12 months or upcoming 90 days Recent Visits Date Type Provider Dept 06/18/23 Office Visit Ally Moreira PAC [facility] 01/16/23 Office Visit Ally Moreira PAC [facility] Showing recent visits within past 365 days and meeting all other requirements Future Appointments Date Type Provider Dept 08/13/23 Appointment Ally Moreira PAC [facility] Showing future appointments within next 90 days and meeting all other requirements documented in this encounter Plan of Treatment Not on file documented as of this encounter Visit Diagnoses Diagnosis Attention deficit disorder, unspecified hyperactivity presence documented in this encounter Additional Health Concerns Assessment Noted Time PHQ-9 Depression Total Score: 0 06/18/19 24 3:02 PM BUSINESS OFFICE DIRECTOR documented as of this encounter Care Teams Bilingual Speech Language Pathologist Relationship Specialty Start Date End Date Ally Moreira [address] [place] [address] PCP - General Physician Sheriff Detective 01/16/23 documented as of this encounter
--- OUTSIDE RECORDS SUMMARY | 2024-03-30 22:55 | XMS_ITS | Encounter Summary ---
Author Organization [facility] Address [address] [facility] [place] [address] Phone Care Team Providers Care Drug Abuse Treatment Specialist Name Role Phone Ally Moreira Primary Care Provider + Reason for Visit * Consult, Test & Initiate Treatment (Routine) - Closed Specialty Diagnoses / Procedures Referred By Ifeanyi nieves Referred To Contact Behavioral Health Diagnoses Attention deficit Ally Moreira [address] [place] [address] Phone: tel: fax: Preet Stafford PSYD [place] Referral ID Status Reason Start Date Expiration Date Visits Re quested Visits Authorized [id number] Closed 01/16/2023 12 12 Encounter Details Date Type Department Care Team (Latest Contact Info) Description 06/10/2023 3:30 PM PATIENT CARE SPECIALIST Outpatient Clinic Visit [facility] [address] [place] [address] Preet Stafford PSYD [place] Attention deficit hyperactivity disorder, combined presentation, moderate (Primary Dx); Major depressive disorder, recurrent episode, mild, with anxious distress (HCC) Discharge Disposition: Discharged to home or Selfcare [...] on file documented as of this encounter Patient Instructions * Patient Instructions* Preet Stafford PSYD - 06/10/2023 3:30 PM PATIENT CARE SPECIALIST Crisis Resources In-Home, Mental Health [facility] Team?[phone] ([facility] Crisis Intervention Team?............... [phone] ([place]) [facility] Available for individual, family, or friend for in-home assessment of mental health issue Crisis Stabilization- Residential 24-hour or short term supervised care at a facility. Available for persons 18 and older, who are experiencing a mental health crisis and do not need hospitalization. [facility]?.[phone] [facility] ?...........?.???..[phone] Brief Crisis Phone Counseling Behavioral Health Response (BHR)?.?[phone] / [phone] ([place]) [facility] (Medicaid patients) ?..[phone] If non-Medicaid patient, joellen will be referred to local service provider Hotline [facility] Suicide Prevention Hotline: ?..?..........................6-877-043-TALK (5982) or 988 National Sexual Assault Hotline?..?...?.?......0-273-240- TOW (8373) Local Sexual Assault Victims Support?.1-107.860.7287 [facility] Child Abuse Hotline?.???..-2 03-2493 Domestic Violence Hotline?.?.....-7 99-SAFE (1957) [facility] [facility] Lifeline?.?.....??? Trans Lifeline?..???.1-540.400.4722 LGBTQ Partner Abuse & Sexual Assault Line?...1- [phone] [facility] including support for opioids or other substances.?..1-114.860.1854 Crisis Text Line???..?.?.?Text the wordhelp to 199319 [facility] Text Line for service referrals.?.?..........???.Text the word help to 750499 [facility]?...? [facility] Warmline? 9a-9p/7 days a week [facility] Warm[facility]?..1-659.621.7575 Emergency Sites for Mental Health Assessment and Treatment Behavioral Health Urgent Care [facility] Behavioral Health Urgent Care (5yrs old to adult) [address] [facility] [address] [place] [address] Thursday - Thursday 9:00am - 7:00pm *Last patient seen at 6:00pm Hospitals with Inpatient Psychological Services for Children and/or Adolescents and Adults [facility] (also has substance use treatment for adults) (adolescent, adult) [address] [place] [address] [email or web address] Center (children, adolescent, adult) after business hours [phone] [address]. [facility] Behavioral Health (children, adolescent, adult) [address] [place] [address] [facility] (also has substance use treatment for adults) (children, adolescent, adult) Phone: or [phone] [place] [address] [facility] (adolescent, adult) Phone: or [phone] [address] [place] [address] Hospitals with Inpatient Psychological Services for Adults only [facility] (adult, geriatric) [address] [phone] [facility] Behavior[facility] Health (adult) [address] [place] [address] [facility] (adult) Phone: or [phone] [address] [place] [address] [facility] (geriatric only) Phone: or [phone] [address] [place] [address] [facility] (adult, geriatric) [address] [place], [place]. ENT CARE SPECIALIST documented in this encounter Progress Notes * Preet Stafford PSYD - 06/10/2023 3:30 PM CST [facility] BE[facility] CLINICAL PROGRESS NOTE NAME: Danyell Edwards AGE: 22 y.o. DATE OF : 2000 DATE OF SERVICE: 06/10/2023 START TIME: 3:30 pm END TIME: 4:15 pm DIAGNOSIS: 1. Attention deficit hyperactivity disorder, combined presentation, moderate 2. Major depressive disorder, recurrent episode, mild, with anxious distress (HCC) TREATMENT PLAN: Goals Addressed This Visit's Progress COMPLETED: Psychological assessment Participate fully in psychological assessment to determine presence of ADHD within next 60 days. PROBLEM STATUS: Danyell was seen today due to the following concerns: Medical/daily routine: low motivation Attention, concentration, and hyperactivity concerns Olga has been referred for a psychological assessment with this author to determine whether she meets the criteria for attention deficit hyperactivity disorder. Based upon the presenting problem the following treatment modalities were utilized: Psychological assessment FUNCTIONAL ASSESSMENT: Can the patient perform Activities of Daily Living (ADL'S)?: Patient is able to complete ADL's independently Does patient have the ability and the capacity to respond to treatment?: Yes THERAPEUTIC INTERVENTIONS USED: This clinician provided therapeutic interventions for: Behavior/anger control difficulties: Psychological assessment . Danylel and her partner met with this author to discuss the results of her psychological assessment. It was explained that she meets the criteria for attention deficit hyperactivity disorder, combined presentation, moderate, based on her lifelong history of symptoms, significant number of symptoms in both categories of ADHD, and current level of the stress/dysfunction. She and this author discussed a number of recommendations regarding lifestyle changes and which she felt she had already tried,with little success. She and this author then discussed the possibility of a consult with her primary care provider regarding medication, to which patient appeared enthusiastic. She was encouraged toreach out to her primary care provider for an appointment, and to reach out to this author with anyadditional questions or concerns on the contents of the report. She thinks this author for conducting the psychological assessment, stating it had provided her better clarity on a number of differentexperiences throughout her life. Danyell verbalized an understanding and responded well to interventions provided during treatment session. PROGRESS TOWARDS GOALS: Danyell reported no change in symptoms. MENTAL STATUS EXAM: Danyell is: alert spontaneous. Affect is: within normal range. Mood is: euthymic. There is: no current suicidal ideation.. There is: no history of homicidal ideation.. TREATMENT RECOMMENDATIONS/FOLLOW UP: Recommendations for follow up treatment plan: Referral to primary care provider for consult on medication options . Preet Stafford PSYD ENT CARE SPECIALIST * Preet Stafford PSYD - 06/10/2023 3:30 PM CST Images from the original note were not included. Name: Danyell Edwards Ethnicity: White Sex: Female Date of Report: 06/10/2023 Age: 22 Author: Preet Stafford PsyD Date of : 2000 Dates of Assessment: 04/07/2023, 05/25/2023 Referral Source and Questions Ms. Danyell Edwards has been referred for a psychological assessment by her primary care provider, MERCEDES Rosa. Ms. Edwards has displayed a lifelong pattern of difficulties with inattention, andis interested as to whether her symptoms mean she has a neurodevelopmental disorder such as attention- deficit/hyperactivity disorder (ADHD). Measures Administered Clinical Interview 04/07/2023 - 1 hour Patient Health Questionnaire-9 (PHQ-9) 04/07/2023 - 5 minutes Crystal Suicide Severity Rating Scale (C-SSRS) 04/07/2023 - 5 minutes Generalized Anxiety Disorder-7 (FAUSTINO-7) 04/07/2023 - 5 minutes Gunjan Rating of Executive Function (D-REF Adult) 05/25/2023 - 15 minutes Melissa Adult ADHD Rating Scale, Fourth Edition (BAARS-IV) 05/25/2023 - 15 minutes Diagnostic Interview of ADHD in Adults, Third Edition (DIVA-5) 05/25/2023 - 1 hour Record Review Clinical notes of MERCEDES Rosa Patient Description Ms. Edwards presents as a young woman, white, of average height and slightly heavier weight, dressedcasually and adequately groomed. She met with this author on two separate occasions. The first was on 04/07/2023, in which she met with this author for one hour for a clinical intake interview and was administered the PHQ-9, FAUSTINO-7, and C-SSRS. The second was on 05/25/2023, in which she was interviewed further by this author using the DIVA-5 for approximately 1 hour, and administered the D-REF and BAARS-IV assessments for approximately 0.5 hours. She met with this author on 06/10/2023 to discuss the results of her assessment. Presenting Problem and Its History Ms. Edwards has struggled with various issues of inattention throughout her life since childhood, including being easily distracted, engaging in a great deal of procrastination, having difficulty sticking with one task at a time, and struggling with time management. In her words, ???Focusing on anything is pulling teeth and Convincing myself to do anything is nearly impossible. 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 Ms. Edwards has historically struggled with attention issues: In school, she recalls often missing homework because she felt paralyzed in a different activity. She also recalls doing well only when an assignment could be done at school, otherwise procrastinating until immediately before it was to be due or even already overdue. Despite often easily understanding the material and mastering new information quickly, Ms. Edwards has struggled in school over the years due to difficulties with paying attention and time management. As Ms. Edwards reports a relatively consistent history of attentional issues throughout school, work, and her personal life, there is sample basis for the current psychological assessment. Relevant Background Information Ms. Edwards was born 5 weeks premature, reporting that her mother was taking medication for seizuresduring her . She has 4 half-sisters and 1 brother. She is currently . There is a history of some mental health issues in her family: She reported that both her mother and father have s truggled with periods of depression and anxiety throughout her life, and recalls a difficult childhood due to her parents anger issues as well. She suspects her father has also suffered from attention issues, and that one of her half-sisters has been diagnosed with ADHD. Ms. Edwards herself has suffered periods of depression and anxiety throughout her life, and reports being hospitalized briefly in 2016 after a period of suicidal ideation and of self-harm. She last engaged in self-harm in 2021. She has attended counseling in the past and reports she found it helpful. She does not report any current prescribed medications or major medical issues. She engages in occasional use of alcohol and marijuana, and currently vapes daily. Ms. Edwards has recently experienced the of her 's father, with whom she and her were close. She reported strong feelings of grief and sadness at his passing. At the time of the initial interview, Ms. Edwards obtained a score of 7 on the PHQ-9, indicating mild depression, and a score of 8 on the FAUSTINO-7, indicating moderate anxiety. Mental Status Evaluation/Behavioral Observations Ms. Edwards was noticeably fidgety during meetings, playing with her hands or purse and shifting very often in her seat. When asked, she stated that it was difficult to sit for an extended period of time without becoming restless. She appeared emotional and tearful when discussing some difficult aspects of her life, including the recent passing of her partner's father. This author also observed her to be notably hyperverbal. When asked about a particular topic, Ms. Edwards often provided a great many details, occasionally getting ???off-topic?? to an unrelated subject before being redirected by this author. She also seemed to have difficulty hearing this author's question the first time, occasionally requiring this author to repeat it. Her behavior was otherwise unremarkable. Overall Interpretation of Test Findings Executive Functioning The D-REF is a self-report measure of executive functioning difficulties. Executive function can bebroadly defined as the ability to willfully control aspects of one's behavior, emotions, and attention. Cognitive aspects, which are often affected in individuals with ADHD, include the ability to keep one's attention the task, block out distractions, shift from one task to another easily, and remember various tasks. Ms. Edwards completed the self-report version of this assessment, and the resultscan be seen below: Clinical Index Summary Index T-Score Percentile Rank Descriptive Classification Behavioral Executive Functioning 71 96 Moderate Elevation Emotional Executive Functioning 61 86 Mild Elevation Cognitive Executive Functioning 81 99 Severe Elevation Total Executive Functioning 74 98 Moderate Elevation Core Index Summary Index T-Score Percentile Rank Descriptive Classification Attention/Working Memory 79 99 Moderate Elevation Activity Level/Impulse Control 72 97 Moderate Elevation Emotional Control/Anger Management 57 80 Average Elevation Abstract Thinking/Problem Solving 80 99 Severe Elevation Initiation/Apathy 77 99 Moderate Elevation As can be seen above, Ms. Edwards identifies significant issues in every domain measured by the D-REF. She especially points to difficulties with cognitive executive functioning, attention/working memory, abstract thinking/problem- solving, and motivation for activities. Inattention, Hyperactivity, and/or Impulsivity Ms. Edwards completed the BAARS-IV, a self-report measure of symptoms of ADHD. She attained an overall score of 58, signifying severe symptom severity and indicating a very high number of symptoms associated with ADHD. Below are her percentile rank scores in the different areas of ADHD symptoms measured by the BAARS-IV: Domain Name Inattention Hyperactive Impulsive Total ADHD Percentile Rank >99% 98% 94% >99% As can be seen above, Ms. Edwards's ratings of her potential symptoms of ADHD are high. She endorseda great many symptoms of inattention as being experienced ???very often.?? While self-reports suchas the D-REF and BAARS-IV are limited to an individual's own view of themselves, Ms. Edwards clearlyfeels she experiences a great deal more difficulty than a typical person in the above areas. Ms. Edwards was also interviewed extensively using the DIVA-5, a semistructured interview designed to assess the presence of ADHD symptoms in both adult life in childhood. The results of this interview have been summarized below. Summary Ms. Edwards does appear to meet criteria for the neurodevelopmental condition of ADHD. In order to be diagnosed with ADHD, an individual must display at least 5 symptoms of either inattention or hyperactivity/impulsivity. There is good evidence that Ms. Edwards does display a number of characteristicsymptoms of ADHD, listed here according to their designation in the DSM-5-TR, the authoritative manual on current psychological disorders: She often fails to give close attention to her tasks and makes careless mistakes (1a). She has serious difficulty sustaining attention in her activities (1b). She often does not seem to be listening when others speak to her, as reported by her and observed by t his author (1c). She often fails to finish tasks at work and at home, or is unable to finish them on time (1d). Relatedly, she struggles with organization and has a pattern of poor time management (1e). She dislikes and pushes off work that requires more mental effort (1f). She often loses things necessary for tasks and activities (1g). She is easily distracted by extraneous stimuli, especially unrelated thoughts (1h), and she considers herself highly forgetful (1i). Ms. Edwards therefore displays 9/9 symptoms of inattention, the maximum possible and clearly above the 5/9 required to meet criteria for this subtype of ADHD. Ms. Edwards also displays prominent symptoms of hyperactivity/impulsivity as described by the DSM-5-TR. As observed by this author and reported, Ms. Edwards struggles to stay still when seated for long(2a). By report, she often leaves her seat in situations when remaining seated is expected (2b). She often feels internally driven and restless. (2c). She identified having difficulty engaging in leisure activities quietly (2d). She describes her mind as nearly constantly active (2e). She was also observed to be moderately overtalkative (2f). Ms. Edwards does not appear to display the other prominent symptoms of hyperactivity/impulsivity, such as jumping into other people's activities, or havingmajor difficulties in situations which require patience. As she displays 6/9 symptoms, she is abovethe minimum required to meet the criteria for this subtype of ADHD. In addition to the required number of symptoms, several of Ms. Del Castillos symptoms were present priorto the age of 10 years (B), her symptoms are present in more than one setting in her life (C), her symptoms interfere with her functioning negatively (D), and her symptoms are not better explained byanother mental disorder or medical condition (E). While Ms. Edwards does currently suffer from mild-moderate symptoms of depression and anxiety as evidenced by her scores on this author's screening measures, these conditions would not be expected to lead to the wide- ranging and consistent difficulties with attention, concentration, and self-regulation which Ms. Edwards faces. The best explanation for Ms. Edwards's struggles with inattention is the presence of ADHD, ???combined presentation?? dueto meeting the required number of symptoms in both the inattention and hyperactivity/impulsivity subtypes.. In terms of severity level, her presentation of ADHD should be considered ???moderate?? based on the number of symptoms in excess of those required to make the diagnosis, as well as their serious effects on her functioning. Diagnostic Impression F33 Major depressive disorder, recurrent episode, mild, with anxious distress F90.2 Attention-deficit/hyperactivty disorder, combined presentaion, moderate Recommendations Individuals with ADHD often have unique strengths. These include high creativity energy, resilience, and the ability to multitask. Ms. Edwards is encouraged to continue building her talents in these areas, and it is this author's opinion she may do well in a more flexible, less pressured working environment than her current one. In order to help her better manage her emotions and minimize the disruptive nature of her symptoms,it was recommended that Ms. Edwards look into individual or group psychotherapy with a competent clinician. This author is happy to provide referrals, either at this facility or other locations. A useful technique for managing symptoms of ADHD is learning the minimum amount of time a person could focus on a task without being distracted. For example, if an individual determines that they could work on a particular task for a minimum of 15 minutes without becoming restless or distracted, longer tasks can then be broken down into small 15 minute sessions, with breaks in between. This techni que has been found to help those with ADHD accomplish a larger task while reducing the strain on their ability to concentrate. Ms. Edwards's abilities to focus on larger, long-term tasks may be unsuccessful due to her trying to work for too long at a time. Ms. Edwards should try her best to build into her schedule a series of ???sprints?? of work broken up by small breaks rather than one long ???marathon?? session of work. Working in small bursts is a very common and successful method individuals with ADHD use to accomplish larger tasks. Ms. Edwards indicated that she struggles with becoming distracted while she is working. For many people with ADHD, their home environment is not conducive to productive work due to the many distractions that can be found there. Many individuals benefit from working outside the home, such as at a coffee shop or library, where there is a limited amount of distractions. Many people also benefit from working in a setting where others are also working productively, like a [employer] library. Changing the place where Ms. Edwards works to one outside of her home, surrounded by others working productively, could also improve her ability to focus in on her work and minimize distractions. Ms. Edwards may also benefit from using earplugs or noise-cancelling headphones when working in a noisy environment. Certain times of the day maybe more or less conducive to Ms. Edwards remaining focused and blocking out distractions. Ms. Edwards may benefit from arranging her schedule so that the work she needs to do is ???front loaded?? into the beginning part of her day. Alternatively, Ms. Edwards could find sheworks most effectively later in the day, when she has had ample time in the morning to become acclimated to her work environment and take care of other things she needs to do. While each individual is different, Ms. Edwards is encouraged to think about which times of the day she may be most productive, and trying maximize her activity during those times. Generally, individuals with ADHD do best with more external structure rather than internal motivation. Ms. Edwards would likely benefit from a more well- developed system of reminders, and more consistent use of a calender. There are many calender applications for phones which can serve as good organizational tools. She is encouraged to ???shop around?? and find a calender ramya in which she can putin reminders for herself as to important events and deadlines. Ms. Edwards may be easily distracted by her phone or browsing the internet when trying to work. She may benefit from installing a program which limits or disables her internet use for specific periodsof time during the day, in order to increase her productivity and avoid distractions. Some programscan also filter specific categories of web sites which are most distracting, such as social media or video streaming sites. She is encouraged to look into whether these types of programs may provide an added benefit for her. As an alternative, Ms. Edwards is encouraged to think about trying to do asmuch of her work ???offline?? as possible, such as leaving her phone at home during a study session, or going to work in place with no internet connection. In general, she should try to limit her exposure to distracting stimuli as much as possible. Individuals with ADHD often benefit more from external motivation and rewards than internal ones. Ms. Edwards may benefit from using an enjoyable activity (e.g., watching a favorite show or sports program) as a reward for staying focused on a difficult task. She could also plan a major reward (e.g.,having friends over, dining at a nice restaurant, planning a vacation) for maintaining focus on a series of difficult tasks. Many people with ADHD find benefit from the various types of medication prescribed for this condition, although a significant amount do not. It may be useful for Ms. Edwards to schedule a consultationwith a psychiatrist or her primary care provider in order to discuss possible medication options and their pros and cons. It has been a pleasure to work with Ms. Edwards. This author wishes her success, and encourages her to reach out at [phone] for any assistance going forward. _06/10/2023 3:30pm__ Preet Stafford PsyD Date Licensed Psychologist [place] License #[id number] [place] License #[id number] [place] License #[id number] ENT CARE SPECIALIST documented in this encounter Plan of Treatment Not on file documented as of this encounter Visit Diagnoses Diagnosis Attention deficit hyperactivity disorder, combined presentation, moderate- Primary Attention deficit disorder with hyperactivity Major depressive disorder, recurrent episode, mild, with anxious distress (HCC) Major depressive disorder, recurrent episode, mild documented in this encounter Care Teams Drug Abuse Treatment Specialist Relationship Specialty Start Date End Date Ally Moreira [address] [place] [address] PCP - General Physician Paraprofessional Education Assistant 01/16/23 documented as of this encounter
--- OUTSIDE RECORDS SUMMARY | 2024-03-30 22:55 | XMS_ITS | Encounter Summary ---
Author Organization [facility] Address [address] [place] [address] Care Team Providers Care Dean Of Girls Name Role Phone Dena Moya NP Primary Care Provider [phone] Encounter Details Date Type Department Care Team (Latest Contact Info) Description 09/03/2023 2:25 PM CDT - 09/03/2023 11:59 PM CDT Hospital Encounter [address] [address] Bilateral lower abdominal cramping; Functional diarrhea; Encounter for screening examination for intermediate hyperglycemia and diabetes mellitus; Encounter for hepatitis C screening test for low risk patient; Lipid screening; Thyroid disorder screen; Vitamin D deficiency Discharge Disposition: Discharge to home or self [...] on file Legal Sex Female 2:33 AM 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 30 tablet 05/30/2017 UNKNOWN TO PATIENTIndication s:pt reports taking lyrica and ultram for pain but does not know doses. dextroamphetamine -amphetamine (ADDERALL) 10 mg tablet Take 1 tablet (10 mg total) by mouth 2 (two) times a day 60 tablet 09/03/2023 10/22/2023 dicyclomine (BENTYL) 20 mg tablet Take 1 tablet (20 mg total) by mouth every 6 (six) hours as needed (abdominal cramping) 30 tablet 1 09/03/2023 03/04/2024 documented as of this encounter Discharge Disposition Disposition Code Departure Means Destination Discharge to home or self care documented in this encounter Plan of Treatment Not on file documented as of this encounter Procedures Procedure Name Priority Date/Time Associated Diagnosis Comments EGFR Routine 09/03/2023 2:00 PM CDT Bilateral lower abdominal cramping Functional diarrhea DIFFERENTIAL AUTO Routine 09/03/2023 2:0 0 PM CDT Bilateral lower abdominal cramping Functional diarrhea THYROID FUNCTION CASCADE Routine 09/03/2023 2:00 PM CDT Thyroid disorder screen CBC WITH AUTO DIFFERENTIAL Routine 09/03/2023 2:00 PM CDT Bilateral lower abdominal cramping Functional diarrhea HEPATITIS C ANTIBODY Routine 09/03/2023 2:00 PM CDT Encounter for hepatitis C screening test for low risk patient VITAMIN D 25 HYDROXY Routine 09/03/2023 2:00 PM CDT Vitamin D deficiency ERYTHROCYTE SEDIMENTATION RATE Routine 09/03/2023 2:00 PM CDT Bilateral lower abdominal cramping Functional diarrhea HEMOGLOBIN A1C Routine 09/03/2023 2:00 PM CDT Encounter for screening examination for intermediate hyperglycemia and diabetes mellitus LIPID PANEL Routine 09/03/2023 2:00 PM CDT Lipid screening COMPREHENSIVE METABOLIC PANEL Routine 09/03/2023 2:00 PM CDT Bilateral lower abdominal cramping Functional diarrhea documented in this encounter Results * eGFR (09/03/2023 2:00 PM CDT) eGFR >90 >=60 mL/min/1. 73 m2 Comment: Interpretive Data Reference Interval Normal ?>/= 90 mL/min/1.73m2 Mildly decreased* ? 60 - 89 mL/min/1.73m2 Mildly to moderately decreased ?45 - 59 mL/min/1.73m2 Moderately to severely decreased ??30 - 44 mL/min/1.73m2 Severely decreased ?15 - 29 mL/min/1.73m2 Kidney Failure ?< 15 ??mL/min/1.73m2 *Relative to young adult level Estimated glomerular filtration rate is determined by the 2020 CKD-EPI equation recommended by the National Kidney Foundation (A Unifying Approach to GFR Estimation: Recommendations of the NKF-ASK Task Force on Reassessing the Inclusion of Race in Diagnosing Kidney Disease, JASN 2020). The CKD-EPI equation should not be used for patients with unstable renal function and has not been validated in children and those over 70. Current interpretive data was last reviewed 2021. Blood 09/03/2023 2:00 PM CDT 09/03/2023 8:44 PM CDT us Dena Moya NP LAB BLOOD ORDERABLES Final Resul t [address] Department [place] [address] * Differential, auto (09/03/2023 2:00 PM CDT) Pathologist [facility] Neutrophil abs 2.8 1.5 - 6.5 K/cumm Imm gran abs 0.0 0.0 - 0.1 K/cumm [facility] Lymphocyte abs 2.9 0.8 - 3.3 K/cumm [facility] Monocyte abs 0.4 0.2 - 0.8 K/cumm [facility] Eosinophil abs 0.1 0.0 - 0.5 K/cumm [facility] Basophil abs 0.0 0.0 - 0.1 K/cumm [facility] Neutrophil pct 45.1 % [facility] Comment: Interpretive Data Percent cell count reference ranges are not reported, since discordance with absolute values may lead to misinterpretation of CBC data. Current Interpretive Data was last revised on 2017. Imm gran pct 0.2 % [facility] Comment: Interpretive Data Percent cell count reference ranges are not reported, since discordance with absolute values may lead to misinterpretation of CBC data. Current Interpretive Data was last revised on 2017. Lymphocyte pct 46.0 % [facility] Comment: Interpretive Data Percent cell count reference ranges are not reported, since discordance with absolute values may lead to misinterpretation of CBC data. Current Interpretive Data was last revised on 2017. Monocyte pct 6.9 % [facility] Comment: Interpretive Data Percent cell count reference ranges are not reported, since discordance with absolute values may lead to misinterpretation of CBC data. Current Interpretive Data was last revised on 2017. Eosinophil pct 1.3 % [facility] Comment: Interpretive Data Percent cell count reference ranges are not reported, since discordance with absolute values may lead to misinterpretation of CBC data. Current Interpretive Data was last revised on 2017. Basophil pct 0.5 % [facility] Comment: Interpretive Data Percent cell count reference ranges are not reported, since discordance with absolute values may lead to misinterpretation of CBC data. Current Interpretive Data was last revised on 2017. Blood 09/03/2023 2:00 PM CDT 09/03/2023 8:07 PM CDT us Dena Moya NP LAB BLOOD [place] [address] [address] Department [place] [address] * Erythrocyte sedimentation rate (09/03/2023 2:00 PM CDT) Erythrocyte sedimentation rate 7 1 - 20 mm/hr Blood 09/03/2023 2:00 PM CDT 09/03/2023 8:07 PM CDT us Dena Moya DESIGN PAINTER LAB BLOOD ORDERABLES Final Resul t Performing Organization Address [facility] [place] [address] [address] [facility] [place] [address] * (ABNORMAL) Vitamin D 25 hydroxy (09/03/2023 2:00 PM CDT) Vitamin D 25-OH 15(L) 30 - 80 ng/mL Blood 09/03/2023 2:00 PM CDT 09/03/2023 8:07 PM CDT us Dena Moya DESIGN PAINTER LAB BLOOD ORDERABLES Final Resul t Performing Organization Address [facility] [place] Number [place] [address] [address] [facility] [place] [address] * Thyroid Function [place] (09/03/2023 2:00 PM CDT) TSH 1.35 0.30 - 4.20 mcIUnit/mL Blood 09/03/2023 2:00 PM CDT 09/03/2023 8:07 PM CDT us Dena Moya DESIGN PAINTER LAB BLOOD ORDERABLES Final Resul t Performing Organization Address [facility] [place] [address] [facility] [employer] [place], [place] [id number] * Lipid panel (09/03/2023 2:00 PM CDT) [...] on 2017. Triglycerides 97 <=149 mg/dL [facility] Comment: Interpretive Data Ages < or = [...] on 2017. HDL 41 >=40 mg/dL [facility] Comment: Interpretive Data Ages < or = [...] 2017. LDL, calculated 128 <=129 mg/dL [facility] Comment: Interpretive Data Ages < or = [...] on 2017. Non-HDL Cholesterol 147 mg/dL [facility] Comment: Interpretive Data Ages < or = [...] last revised on 2017. Chol/HDL ratio 5 [facility] Blood 09/03/2023 2:00 PM CDT 09/03/2023 8:07 PM CDT us Dena Moya DESIGN PAINTER LAB BLOOD ORDER[place] [address] [address] Department [place] [address] * Hepatitis C antibody Blood (09/03/2023 2:00 PM CDT) Pathologist [facility] Hep C Ab Nonreactive Nonreactive Comment: Interpretive [...] ORDER ANTHONY Final Result Performing Organization Address [facility] de Phone Number [address] [place] [address] * Hemoglobin A1c (09/03/2023 2:00 PM CDT) Pathologist [facility] Hgb A1C 5.5 4.0 - 5.6 % Estimated Average Glucose 111 mg/dL [facility] LE Comment: The ADA recommends reporting an estimated Average Glucose (eAG) with all Hemoglobin A1c results using the equation derived from a study of 507 normal and diabetic adults. ??Minority populations were underrepresented and children were not included. ?? (Diabetes Care 31:1679-3611, 2008). ??The eAG is not equivalent to a fasting glucose. Blood 09/03/2023 2:0 0 PM CDT 09/03/2023 8:07 PM CDT us Dena Moya NP LAB BLOOD ORDERABLES Final Resul t Performing Organization Address [facility] [place] [address] [address] [place] [place] [address] * (ABNORMAL) Comprehensive metabolic panel (09/03/2023 2:00 [...] classification and Diagnosis of Diabetes Diabetes Care 2021; 46: S19-S40. Current interpretive data was last [...] NP LAB BLOOD ORDERABLES Final Resul t [address] [address] Department [place] [address] * CBC with auto differential (09/03/2023 2:00 PM CDT) WBC 6.2 3.8 - 9.9 K/cumm Hgb [...] NRBC abs 0.00 0.00 - 0.01 K/cumm [facility] Blood 09/03/2023 2:00 PM CDT 09/03/2023 8:07 PM CDT Dena Moya NP LAB BLOOD ORDERABLES Final Resul t [address] [address] [address] Department [place] [address] documented in this encounter Visit Diagnoses Diagnosis Bilateral lower abdominal cramping Functional diarrhea Encounter for screening examination for intermediate hyperglycemia and diabetes mellitus Encounter for hepatitis C screening test for low risk patient Lipid screening Screening for lipoid disorders Thyroid disorder screen Screening for thyroid disorder Vitamin D deficiency documented in this encounter Care Teams Dean Of Girls Relationship Specialty Start Date End Date Dena Moya NP [address] [facility] [address] [place] [address] PCP - General Family Medicine 09/03/23 documented as of this encounter
--- OUTSIDE RECORDS SUMMARY | 2024-03-30 22:55 | XMS_ITS | Encounter Summary ---
Author Organization [facility] Address [address] [facility] [place] [address] Phone Care Team Providers Care Cat Tender Name Role Phone Ally Moreira Primary Care Provider + Reason for Visit * Reason Comments Follow-up Medications Encounter Details Date Type Department Care Team (Late st Contact Info) Description 06/18/2023 3:00 PM CHEMISTRY ASSOCIATE Office Visit [facility] [address] [place] [address] Ally Moreira PAC [address] [place] [address] Attention deficit disorder, unspecified hyperactivity presence (Primary Dx); Anxiety Discharge Disposition: Discharged to home or Selfcare [...] on file documented as of this encounter Last Filed Vital Signs Vital Sign Reading Time Taken Comments Blood Pressure 122/86 06/18/2023 2:52 PM CHEMISTRY ASSOCIATE Pulse 87 06/18/2023 2:52 PM CHEMISTRY ASSOCIATE Temperature 36.6 ??C (97.8 ??F) 06/18/2023 2:52 PM CS T Respiratory Rate - - Oxygen Saturation 100% 06/18/2023 2:52 PM CHEMISTRY ASSOCIATE Inhaled Oxygen Concentration - - Weight 127 kg (280 lb) 06/18/2023 2:52 PM CHEMISTRY ASSOCIATE Height 157.5 cm (5' 2 ) 06/18/2023 2:52 PM CHEMISTRY ASSOCIATE Body Mass Index 51.21 06/18/2023 2:52 PM CHEMISTRY ASSOCIATE documented in this encounter Functional Status * Question Answer Date of Assessment Author Little interest or pleasure in doing things Not at all 06/18/2023 3:02 PM CHEMISTRY ASSOCIATE Rosie Strange C MA Feeling down, depressed, or hopeless Not at all 06/18/2023 3:02 PM CHEMISTRY ASSOCIATE Rosie Strange C MA * Over the past 2 weeks, how often have you been bothered by any of the following problems? Question Answer Date of Assessment Author Patient Health Questionnaire -2 Score 0 06/18/2023 3:02 PM CHEMISTRY ASSOCIATE Rosie Strange C MA documented as of this encounter Patient Instructions * Patient Instructions* Rosie Strange CMA - 06/18/2023 3:00 PM CHEMISTRY ASSOCIATE Images from the original note were not included. Steps to Quit Smoking Smoking tobacco is the leading cause of preventable . It can affect almost every organ in the body. Smoking puts you and those around you at risk for developing many serious chronic diseases. Quitting smoking can be difficult, but it is one of the best things that you can do for your health. It is never too late to quit. How do I get ready to quit? When you decide to quit smoking, create a plan to help you succeed. Before you quit: Pick a date to quit. Set a date within the next 2 weeks to give you time to prepare. Write down the reasons why you are quitting. Keep this list in places where you will see it often. Tell your family, friends, and co-workers that you are quitting. Support from your loved ones can make quitting easier. Talk with your health care provider about your options for quitting smoking. Find out what treatment options are covered by your health insurance. Identify people, places, things, and activities that make you want to smoke (triggers). Avoid them. What first steps can I take to quit smoking? Throw away all cigarettes at home, at work, and in your car. Throw away smoking accessories, such as ashtrays and lighters. Clean your car. Make sure to empty the ashtray. Clean your home, including curtains and carpets. What strategies can I use to quit smoking? Talk with your health care provider about combining strategies, such as taking medicines while you are also receiving in-person counseling. Using these two strategies together makes you more likely to succeed in quitting than if you used either strategy on its own. If you are or , talk with your health care provider about finding counseling or other support strategies to quit smoking. Do not take medicine to help you quit smoking unless your health care provider tells you to do so. To quit smoking: Quit right away Quit smoking completely, instead of gradually reducing how much you smoke over a period of time. Research shows that stopping smoking right away is more successful than gradually quitting. Attend in-person counseling to help you build problem-solving skills. You are more likely to succeed in quitting if you attend counseling sessions regularly. Even short sessions of 10 minutes can be effective. Take medicine You may take medicines to help you quit smoking. Some medicines require a prescription and some youcan purchase [id number]. Medicines may have nicotine in them to replace the nicotine in cigarettes. Medicines may: Help to stop cravings. Help to relieve withdrawal symptoms. Your health care provider may recommend: Nicotine patches, gum, or lozenges. Nicotine inhalers or sprays. Non-nicotine medicine that is taken by mouth. Find resources Find resources and support systems that can help you to quit smoking and remain smoke-free after you quit. These resources are most helpful when you use them often. They include: Online chats with a counselor. Telephone quitlines. Printed self-help materials. Support groups or group counseling. Text messaging programs. Mobile phone apps or applications. Use apps that can help you stick to your quit plan by providing reminders, tips, and encouragement. There are many free apps for mobile devices as well as websites.Examples include Quit Guide from the CDC and smokefree.gov What things can I do to make it easier to quit? Reach out to your family and friends for support and encouragement. Call telephone quitlines (9-718-ZNAU-NOW), reach out to support groups, or work with a counselor for support. Ask people who smoke to avoid smoking around you. Avoid places that trigger you to smoke, such as bars, parties, or smoke-break areas at work. Spend time with people who do not smoke. Lessen the stress in your life. Stress can be a smoking trigger for some people. To lessen stress, try: Exercising regularly. Doing deep-breathing exercises. Doing yoga. Meditating. Performing a body scan. This involves closing your eyes, scanning your body from head to toe, and noticing which parts of your body are particularly tense. Try to relax the muscles in those areas. How will I feel when I quit smoking? Day 1 to 3 weeks Within the first 24 hours of quitting smoking, you may start to feel withdrawal symptoms. These symptoms are usually most noticeable 2-3 days after quitting, but they usually do not last for more than 2-3 weeks. You may experience these symptoms: Mood swings. Restlessness, anxiety, or irritability. Trouble concentrating. Dizziness. Strong cravings for sugary foods and nicotine. Mild weight gain. Constipation. Nausea. Coughing or a sore throat. Changes in how the medicines that you take for unrelated issues work in your body. Depression. Trouble sleeping (insomnia). Week 3 and afterward After the first 2-3 weeks of quitting, you may start to notice more positive results, such as: Improved sense of smell and taste. Decreased coughing and sore throat. Slower heart rate. Lower blood pressure. Clearer skin. The ability to breathe more easily. Fewer sick days. Quitting smoking can be very challenging. Do not get discouraged if you are not successful the first time. Some people need to make many attempts to quit before they achieve long-term success. Do your best to stick to your quit plan, and talk with your health care provider if you have any questionsor concerns. Summary Smoking tobacco is the leading cause of preventable . Quitting smoking is one of the best things that you can do for your health. When you decide to quit smoking, create a plan to help you succeed. Quit smoking right away, not slowly over a period of time. When you start quitting, seek help from your health care provider, family, or friends. This information is not intended to replace advice given to you by your health care provider. Make sure you discuss any questions you have with your health care provider. Document Revised: 12/06/2021 Document Reviewed: 06/18/2019 [employer] Patient Education ?? 2021 [employer] Health Risks of Smoking Smoking tobacco is very bad for your health. Tobacco smoke contains many toxic chemicals that can damage every part of your body. Secondhand smoke can be harmful to those around you. Tobacco or nicotine use can cause many long-term (chronic) diseases. Smoking is difficult to quit because a chemical in tobacco, called nicotine, causes addiction or dependence. When you smoke and inhale, nicotine is absorbed quickly into the bloodstream through your lungs. Both inhaled and non-inhaled nicotine may be addictive. How can quitting affect me? There are health benefits of quitting smoking. Some benefits happen right away and others take time. Benefits may include: Blood flow, blood pressure, heart rate, and lung capacity may begin to improve. However, any lung damage that has already occurred cannot be repaired. Temporary respiratory symptoms, such as nasal congestion and cough, may improve over time. Your risk of heart disease, stroke, and cancer is reduced. The overall quality of your health may improve. You may save money, as you will not spend money on tobacco products and may spend less money on smoking-related health issues. What can increase my risk? Smoking harms nearly every organ in the body. People who smoke tobacco have a shorter life expectancy and an increased risk of many serious medical problems. These include: More respiratory infections, such as colds and pneumonia. Cancer. Heart disease. Stroke. Chronic respiratory diseases. Delayed wound healing and increased risk of complications during surgery. Problems with reproduction, , and childbirth, such as infertility, early (premature) births, stillbirths, and defects. Secondhand smoke exposure to children increases the risk of: Sudden syndrome (SIDS). Infections in the nose, throat, or airways (respiratory infections). Chronic respiratory symptoms. What actions can I take to quit? Smoking is an addiction that affects both your body and your mind, and long-time habits can be hardto change. Your health care provider can recommend: Nicotine replacement products, such as patches, gum, and nasal sprays. Use these products only as directed. Do not replace cigarette smoking with electronic cigarettes, which are commonly called e-cigarettes. The safety of e-cigarettes is not known, and some may contain harmful chemicals. Programs and community resources, which may include group support, education, or talk therapy. Prescription medicines to help reduce cravings. A combination of two or more quit methods, which will increase the success of quitting. Where to find support Follow the recommendations from your health care provider about support groups and other assistance. You can also visit: [place] Quitline Consortium: www.naquitline.org or call 2-469-JPTJ-NOW. U.S. Department of Health and Human Services: www.smokefree.gov [place] [employer]: www.freedomfromsmoking.org [place] Heart [employer]: www.heart.org Where to find more information Centers for Disease Control and Prevention: www.cdc.gov World Health Organization: www.who.int Summary Smoking tobacco is very bad for your health. Tobacco smoke contains many toxic chemicals that can damage every part of the body. Smoking is difficult to quit because a chemical in tobacco, called nicotine, causes addiction or dependence. There are immediate and long-term health benefits of quitting smoking. A combination of two or more quit methods increases the success of quitting. This information is not intended to replace advice given to you by your health care provider. Make sure you discuss any questions you have with your health care provider. Document Revised: 12/02/2021 Document Reviewed: 05/14/2020 [employer] Patient Education ?? 2021 [employer] ISTRY ASSOCIATE documented in this encounter Progress Notes * Rosie Strange CMA - 06/18/2023 3:00 PM CST Danyell Edwards, 22 y.o., female is here for Follow-up (Medications/) Medication Refills: Patient reports/denies need for medication refills. Orders Pended: no Requested Prescriptions No prescriptions requested or ordered in this encounter Home Medications Not on File There are no discontinued medications. I have reviewed the home medication list with the patient and have reconciled discrepancies. The list is accurate to the best of my knowledge. Smoking Status: Social History Tobacco Use Smoking status: Every Day Types: Cigarettes Smokeless tobacco: Never Vaping Use Vaping Use: Every day Substance Use Topics Alcohol use: Yes Comment: on occasion Drug use: Yes Types: Marijuana Smoking Cessation Counseling Given: no Health Care Maintenance: Health Maintenance Due Topic Date Due Hepatitis B Immunization (1 of 3 - 3-dose series) Never done Pneumococcal Immunization Combined (1 of 2 - PCV) Never done DTaP/Tdap/Td Immunization (1 - Tdap) Never done Human Papillomavirus (HPV) Immunization (1 - 2-dose series) Never done Pap Smear Never done Orders Pended: no The following BPA's have been addressed with the patient today: Depression, Nutrition, and functional PHQ-2 Little interest or pleasure in doing things: Not at all Feeling down, depressed, or hopeless: Not at all Initial Score - If the score is 2 or higher, please proceed with the additional evaluation.: 0 PHQ-9 3. Trouble falling asleep or staying asleep or sleeping too much?: 0 - Not at all 4. Feeling tired or having little energy?: 0 - Not at all 5. Poor appetite or overeating?: 0 - Not at all 6. Feeling bad about yourself or that you are a failure or have let yourself or your family down?: 0 - Not at all 7. Trouble concentrating on things, such as reading the newspaper or watching television?: 0 - Not at all 8. Moving or speaking so slowly that other people could have noticed. Or the opposite - being so fidgety or restless that you have been moving around a lot more than usual?: 0 - Not at all 9. Thoughts that you would be better off or of hurting yourself in some way?: 0 - Not at all 10. If you checked off any problems, how difficult have these problems made it for you to do your work, take care of things at home or get along with other people?: Not difficult at all Total Score - Questions 1-9: 0 * Ally Moreira PAC - 06/18/2023 3:00 PM CST Subjective: Subjective Patient is in the office today for follow-up after evaluation with psychologist. She has been diagnosed with ADD. Has not taken medication previously for this. We discussed medications and possible side effects. Review of Systems Constitutional: Negative for chills and fever. Respiratory: Negative for cough. Cardiovascular: Negative for chest pain. Gastrointestinal: Negative for abdominal pain. Psychiatric/Behavioral: Positive for decreased concentration. Negative for suicidal ideas. The patient is nervous/anxious. Objective: Objective Physical Exam Vitals reviewed. Constitutional: Appearance: Normal appearance. She is not ill-appearing. HENT: Head: Normocephalic and atraumatic. Cardiovascular: Rate and Rhythm: Normal rate and regular rhythm. Heart sounds: No murmur heard. Pulmonary: Effort: Pulmonary effort is normal. No respiratory distress. Breath sounds: Normal breath sounds. No wheezing. Neurological: Mental Status: She is alert. Psychiatric: Mood and Affect: Mood normal. Assessment and Plan Assessment & Plan See Diagnoses, Orders, Follow-up, and Instructions .Diagnoses and all orders for this visit: Attention deficit disorder, unspecified hyperactivity presence - amphetamine-dextroamphetamine (Adderall XR) 10 MG CAPSULE SR 24 HR; Take 1 Capsule by mouth everymorning. Anxiety - ALPRAZolam (XANAX) 0.5 MG Tablet; Take 1 pill by oral route 30-60 min prior to procedure Discussed new diagnosis of ADD. We discussed medication Adderall. Discuss possible side effects. Signed medication agreement. Will start medicine as directed. Notify of any problems with medication. Return to clinic in 8 weeks for follow-up. Discussed she has never had a Pap head is very anxious about having this done. She is given alprazolam to take prior to evaluation in the future. Discussed use of alprazolam and possible side effects. documented in this encounter Plan of Treatment Not on file documented as of this encounter Visit Diagnoses Diagnosis Attention deficit disorder, unspecified hyperactivity presence- Primary Anxiety Anxiety state, unspecified documented in this encounter Additional Health Concerns Assessment Noted Time PHQ-9 Depression Total Score: 0 06/18/19 24 3:02 PM CHEMISTRY ASSOCIATE documented as of this encounter Care Teams Cat Tender Relationship Specialty Start Date End Date Ally Moreira PAC [address] [place] [address] PCP - General Physician Regulatory And Compliance Technician 01/16/23 documented as of this encounter
--- OUTSIDE RECORDS SUMMARY | 2024-03-30 22:55 | XMS_ITS | Encounter Summary ---
Author Organization [facility] Address [address] [place] [address] Phone Care Team Providers Care Behavioral Scientist Name Role Phone Ally Moreira Primary Care Provider + Reason for Visit * Consult, Test & Initiate Treatment (Routine) - Closed Specialty Diagnoses / Procedures Referred By Ifeanyi nieves Referred To Contact Behavioral Health Diagnoses Attention deficit Ally Moreira PAC [address] [place] [address] Phone: tel: fax: Preet Stafford PSYD [place] Referral ID Status Reason Start Date Expiration Date Visits Re quested Visits Authorized [id number] Closed 01/16/2023 12 12 Encounter Details Date Type Department Care Team (Latest Contact Info) Description 05/25/2023 1:00 PM GRAPHIC DESIGN PROFESSOR Office Visit [facility] [address] [place] [address] Preet Stafford PSYD [place] Unspecified neurodevelopmental disorder (Primary Dx); Attention deficit Discharge Disposition: Discharged to home or Selfcare [...] encounter Patient Instructions * Patient Instructions* Preet Stafford, ALINA - 05/25/2023 1:00 PM GRAPHIC DESIGN PROFESSOR Crisis Resources In-Home, Mental Health Crisis Assessment [facility] Crisis Intervention Team?[phone] ([facility] Crisis Intervention Team?............... [phone] ([place]) [facility] Available for individual, family, or friend for in-home assessment of mental health issue Crisis Stabilization- Residential 24-hour or short term supervised care at a facility. Available for persons 18 and older, who are experiencing a mental health crisis and do not need hospitalization. [facility]?.[phone] [facility] ?...........?.???..[phone] Brief Crisis Phone Counseling Behavioral Health Response (BHR)?.?[phone] / [phone] ([place]) [facility] (Medicaid patients) ?..[phone] If non-Medicaid patient, joellen will be referred to local service provider Hotline [facility] Suicide Prevention Hotline: ?..?..........................9-666-815-TALK (5865) or 988 National Sexual Assault Hotline?..?...?.?......8-045-530- [place] (0750) Local Sexual Assault Victims Support?.1-155.763.9156 [facility] Child Abuse Hotline?.???..-2 44-6170 Domestic Violence Hotline?.?.....-800-7 99-SAFE (4446) [employer] Lifeline?.?.....??? Trans Lifeline?..???.1-794.579.8472 LGBTQ Partner Abuse & Sexual Assault Line?...1- 735.357.6461 [place] [facility] including support for opioids or other substances.?..1-528.461.6843 Crisis Text Line???..?.?.?Text the wordhelp to 189158 [facility] Text Line for service referrals.?.?..........???.Text the word help to 867411 [facility]?...? [facility] Warmline? 9a-9p/7 days a week [facility] Warmline?..1-731.244.1580 Emergency Sites for Mental Health Assessment and Treatment Behavioral Health Urgent Care [facility] Urgent Care (5yrs old to adult) [address] [place] [address] Thursday - Thursday 9:00am - 7:00pm *Last patient seen at 6:00pm Hospitals with Inpatient Psychological Services for Children and/or Adolescents and Adults [facility] (also has substance use treatment for adults) (adolescent, adult) [address] [place] [address] [facility] (children, adolescent, adult) after business hours [phone] [address]. [facility] (children, adolescent, adult) [address] [place] [address] [facility] (also has substance use treatment for adults) (children, adolescent, adult) Phone: or [phone] [place] [address] [facility] (adolescent, adult) Phone: or [phone] [address] [place] [address] Hospitals with Inpatient Psychological Services for Adults only [facility] (adult, geriatric) [phone] [facility] (adult) [address] [place] [address] [facility] (adult) Phone: or [phone] [address] [place] [address] [facility] (geriatric only) Phone: or [phone] [address] [place] [address] [facility] (adult, geriatric) [address] [place] [address]. HIC DESIGN PROFESSOR documented in this encounter Progress Notes * Preet Stafford PSYD - 05/25/2023 1:00 PM CST [facility] CLINICAL PROGRESS NOTE NAME: Danyell Edwards AGE: 22 y.o. DATE OF : 2000 DATE OF SERVICE: 05/25/2023 START TIME: 1:00 pm END TIME: 2:30 pm DIAGNOSIS: 1. Unspecified neurodevelopmental disorder 2. Attention deficit PSYCHOLOGY REFERRAL TREATMENT PLAN: Goals Addressed This Visit's Progress ??? Psychological assessment On track Participate fully in psychological assessment to determine [...] for: Behavior/anger control difficulties: Psychological assessment . Applicant met with this author for approximately 1.5 hours. She was administered the D-REFS, BAARS-IV, and interviewed using the DIVA-5. This author scored her measures for approximately 0.5 hours. Danyell verbalized an understanding and responded well to interventions provided during treatment session. PROGRESS TOWARDS GOALS: Danyell reported no change in symptoms. MENTAL STATUS EXAM: Danyell is: alert spontaneous. Affect is: within normal range. Mood is: euthymic. There is: no current suicidal ideation.. There is: no history of homicidal ideation.. TREATMENT RECOMMENDATIONS/FOLLOW UP: Recommendations for follow up treatment plan: Return for next available follow up appointment. Preet Stafford PSYD HIC DESIGN PROFESSOR documented in this encounter Plan of Treatment Not on file documented as of this encounter Visit Diagnoses Diagnosis Unspecified neurodevelopmental disorder- Primary Unspecified delay in development Attention deficit Attention or concentration deficit documented in this encounter Care Teams Behavioral Scientist Relationship Specialty Start Date End Date Ally Moreira, [place] [address] [place] [address] PCP - General Physician Environmental Services Worker 01/16/23 documented as of this encounter
--- OUTSIDE RECORDS SUMMARY | 2024-03-30 22:55 | XMS_ITS | Clinical Summary ---
Author Organization [facility] [address] [place] [address] Address [address] [place] [address] Care Team Providers Care Correctional Substance Abuse Counselor Name Role Phone Dena Moya HEARING STENOGRAPHER Primary Care Provider [phone] Allergies Active Allergy Reactions Criticality Noted Date [...] release, 10 mg BID. Developmental disorder 04/07/2023 Encounters Date Type Department Care Team Description 01/07/2024 9:00 AM CDT Office Visit [facility] Primary Care at [address] [address] Diony Oconnor MD FAUSTINO (generalized anxiety disorder) (Primary Dx) from Last 3 Months Immunizations Name Administration Dates Next Due Heplisav-b (Hepatitis B) 12/23/2023 Influenza, Quadrivalent, Gabby l Culture-based MDCK, Preservative Free, Antibiotic Free, Intramuscular 12/31/2022 Surgical History Surgery Date Site/Laterality Comments OTHER SURGICAL HISTORY Oral surgery age 2 BACK SURGERY TYMPANOSTOMY TUBE PLACEMENT Medical History Medical History Date Comments ADHD (attention deficit hyperactivity disorder) Depression Anxiety Family History Medical History Relation Name Comments Arthritis Father Arthritis; Heart disease Father Hypertension Father Hypertension; Arthritis Mother Autoimmune disease Mother Depression Mother Epilepsy Mother Epilepsy; Hypertension Mother Hypertension; Other Mother Anesthesia reac tion; Cancer Paternal Grandfather Cancer; Cancer Paternal Grandmother Cancer; Relation Name Status Comments Father Alive Mother Alive Paternal Grandfather Alive Paternal Grandmother Alive Social History Tobacco Use Types Packs/Day Years Used Date Smoking Tobacco: Never Smokeless Tobacco: Current PHQ-2 Answer Date Recorded PHQ-2 Total Score (If total score is 3 or more points, staff should administer the PHQ-9) 2 01/07/2024 Comments No Sex and Gender Information Value Date Recorded Sex Assigned at Not on file Legal Sex 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 Gender Identity Not on file Sexual Orientation Bisexual 12/03/2023 7: 02 AM CDT Obstetrics History Para Term AB IAB SAB Ectopic Multiple Livin g Live Births 0 0 0 0 0 0 0 0 0 0 0 Last Filed Vital Signs Vital Sign Reading [...] 01/07/2024 9:06 AM CDT Plan of Treatment Health Maintenance Due Date Last Done Comments DTaP/Tdap/Td Vaccine (1 - Tdap) 2009 HPV Vaccines (1 - 3-dose series) 2013 Influenza Vaccine (#1) 2023 12/31/2022 Cervical Cancer Screening 12/02/2024 12/03/2023 Regular Well Visit/Exam 18-64 12/02/2024 12/03/2023 Depression Screening 01/06/2025 01/07/2024, 01/07/2024, 12/03/2023, Additional history exists Hepatitis C Screening Completed 09/03/2023 Pneumococcal vaccine <65 Aged Out No longer eligible based on patient's age to complete this topic Varicella Vaccines Discontinued Procedures Procedure Name Priority Date/Time Associated Diagnosis [...] Suraj Murcia Comment:Routine exam LMP Suraj Murcia Comment:[id number] Previous Pap Suraj Murcia Comment:None given Prev. [...] has been evaluated with computer assisted technology. Valet Cashier Margarito Lozano Comment: AUGUST VILLAFUERTE(ASCP) CT screening location: [place] [address] Administration LOUISE Webber [address] Comment Suraj Murcia Comment: EXPLANATORY NOTE: The [...] NP LAB CYTOLOGY ORDERABLES Final Re sult Performing Organization Address [facility] Co de Phone Number [facility] [address] [place] [address] * Hepatitis C antibody Blood (09/03/2023 2:00 [...] 8:07 PM CDT Dena Moya NP LAB MICROBIOLOGY - GENERAL ORDER ANTHONY Final Result Performing Organization Address [facility] Co de Phone Number GLORIA [address] Department [place] [address] from Last 3 Months or Most Recently Relevant to Health Maintenance Insurance [facility] Care Teams Correctional Substance Abuse Counselor Relationship Specialty Start Date End Date Dena Moya NP [address] [address] PCP - General Family Medicine 09/03/23
--- OUTSIDE RECORDS SUMMARY | 2024-03-30 22:55 | XMS_ITS | Encounter Summary ---
Author Organization [facility] Links Care Team Providers Care Thai Masseur Name Role Phone PanfiloAlly polo [facility] Primary Care Provider + Encounter Details Date Type Department Care Team (Latest Contact Info) Description 04/07/2023 Travel Social History Tobacco Use Types Packs/Day [...] other people? Very difficult 04/07/2023 2:00 PM Prete Torres PSYD * Over the last 2 [...] much Nearly every day 04/07/2023 2:00 PM Preet Torres PSYD Feeling tired or having little energy [...] television Nearly every day 04/07/2023 2:00 PM Preet Torres PSYD Moving or speaking so slowly that [...] Torres PSYD documented as of this encounter Plan of Treatment Not on file documented as of this encounter Visit Diagnoses Not on filedocumented in this encounter Care Teams Thai Masseur Relationship Specialty Start Date End Date Ally Moreira [address] [place] [address] PCP - General Physician Coating Machine Operator 01/16/23 documented as of this encounter
--- OUTSIDE RECORDS SUMMARY | 2024-03-30 22:55 | XMS_ITS | Encounter Summary ---
Author Organization [facility] Address [address] [place] [address] Care Team Providers Care Elevator Constructor Name Role Phone Dena Moya NP Primary Care Provider [phone] Reason for Visit * Reason Comments Follow-up Discuss medication Encounter Details Date Type Department Care Team (Late st Contact Info) Description 01/07/2024 9:00 AM CDT Office Visit [facility] Primary Care at [address] [id number] Diony Oconnor MD [address] [place] [address] [address] [place] [address] FAUSTINO (generalized anxiety disorder) (Primary Dx) Social History Tobacco Use Types Packs/Day Years Used Date Smoking Tobacco: Never Smokeless Tobacco: Current PHQ-2 Answer Date Recorded PHQ-2 Total Score (If total score is 3 or more points, staff should administer the PHQ-9) 2 01/07/2024 Comments No Sex and Gender Information Value Date Recorded Sex Assigned at Not on file 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 My medical assistants and I are thankful you have trusted us with your care, and hope that you received EXCELLENT care today! Please do not hesitate to call if you have any questions or concerns at [phone]. You may receive a phone call, text, MYCHART message, or e-mail asking about your care today. We would love to hear your feedback on how EXCELLENT your care wastoday! Wishing you better health, always. Dr. Oconnor * Attachments The following attachments cannot be sent through Care Everywhere. * Anxiety (Principal Clerk Typist) ([place]) * Escitalopram (By mouth) ([place]) documented in this encounter Ordered Prescriptions Prescription Sig Dispense Quantity Refills Last Filled Start Date End Date hydrOXYzine (ATARAX) 25 mg tabletIndications: anxiety Take 1 tablet (25 mg total) by mouth 3 (three) times a day as needed for anxiety 30 tablet 01/07/2024 escitalopram (Lexapro) 10 mg tabletIndications: Generalized Anxiety Disorder Take 0.5 tablets (5 mg total) by mouth daily for 14 days, THEN 1 tablet (10 mg total) daily for 14 days. 21 tablet 01/07/2024 documented in this encounter Progress Notes * Diony Oconnor MD - 01/07/2024 9:00 AM CDT Images from the original note were not included. Subjective/Objective Patient ID: Danyell Edwards is a 23 y.o. female. Chief Complaint Follow-up (Discuss medication) She notes a lot of new life changes, she is under significantly more stress lately. She has credit issues, looking for a house, and have to be in a new house by the end of the year. She also has the pharmacy board coming up, which she is nervous about as well. Everything is crushing right now. She notes spikes of anxiety, but there is significant anxiety at baseline. She was seeing a therapist,but can't afford it right now (last saw in August-- virtual). FAUSTINO-7 today is Current Outpatient Medications: clindamycin (CLEOCIN T) 1 % gel, Apply [...] mouth 2 (two) times a day with meals., Disp: 30 tablet, Rfl: 0 UNKNOWN TO PATIENT, , Disp: , Rfl: Review of Systems Constitutional: Negative. HENT: Negative. Respiratory: Negative for cough, shortness of breath and wheezing. Cardiovascular: Negative for chest pain and palpitations. Gastrointestinal: Negative. Genitourinary: Negative. Musculoskeletal: Negative for neck pain. Neurological: Negative for headaches. Psychiatric/Behavioral: Positive for agitation and sleep disturbance. Negative for dysphoric mood, hallucinations, self-injury and suicidal ideas. The patient is nervous/anxious. The patient is not hyperactive. BP 110/76 (BP Location: Right arm, Patient Position: Sitting) Pulse 76 Temp 36.1 ??C (96.9 ??F)(Temporal) Resp 16 Ht 157.5 cm (5' 2 ) Wt 116.6 kg (257 lb) LMP 01/04/2024 (Approximate) SpO2 98% BMI 47.01 kg/m?? Physical Exam Vitals reviewed. Constitutional: Appearance: She is morbidly obese. Neurological: Mental Status: She is alert and oriented to person, place, and time. Mental status is at baseline. Psychiatric: Mood and Affect: Mood is anxious. No visits with results within 1 Month(s) from this visit. Latest known visit with results is: Office Visit on 12/03/2023 Component Date Value Ref Range Status CLINICAL INFORMATION: 12/03/2023 Final Routine exam LMP 12/03/2023 Final [id number] Previous Pap 12/03/2023 Final None given Prev. Bx 12/03/2023 Final None given SOURCE: 12/03/2023 Final Cervix, Endocervix Pap, specimen adequacy 12/03/2023 Final Comment: Satisfactory for evaluation. Endocervical/transformation zone component present. HPV interp 12/03/2023 Final Comment: Cytology Results: Negative for intraepithelial lesion or malignancy. Infection: 12/03/2023 Final Comment: Shift in vaginal beau suggestive of bacterial vaginosis. COMMENTS 12/03/2023 Final Comment: This Pap test has been evaluated with computer assisted technology. Vamp Marker 12/03/2023 Final Comment: AUGUST VILLAFUERTE(ASCP) CT screening location: [address] [place] [address] Comment 12/03/2023 Final Comment: EXPLANATORY NOTE: The Pap is a screening test for cervical cancer. It is not a diagnostic test and is subject to false negative and false positive results. It is most reliable when a satisfactory sample, regularly obtained, is submitted with relevant clinical findings and history, and when the Pap result is evaluated along with historic and current clinical information. C. trachomatis RNA 12/03/2023 NOT DETECTED NOT DETECTED Final N. gonorrhoeae RNA 12/03/2023 NOT DETECTED NOT DETECTED Final Comment 12/03/2023 Final Comment: The analytical performance characteristics of this assay, when used to test SurePath(TM) specimens have been determined by [employer]. The modifications have not been cleared or approved by the FDA. This assay has been validated pursuant to the CLIA regulations and is used for clinical purposes. For additional information, please refer to https://[email or web address].[employer]/faq/YUQ738 (This link is being provided for information/ educational purposes only.) Assessment/Plan Diagnoses and all orders for this visit: FAUSTINO (generalized anxiety disorder) (Primary) Comments: trial lexapro, cautioned about side effects hydroxyzine PRN as well follow up in 1 month Orders: - escitalopram (Lexapro) 10 mg tablet; Take 0.5 tablets (5 mg total) by mouth daily for 14 days, THEN 1 tablet (10 mg total) daily for 14 days. - hydrOXYzine (ATARAX) 25 mg tablet; Take 1 tablet (25 mg total) by mouth 3 (three) times a day as needed for anxiety Diony Oconnor MD This office note has been partially dictated using [employer] software, and as a result portions of the record may have been created with this software. Occasional wrong-word or '[id number]' substitutions may have occurred due to the inherent limitations of voice recognition software. Read the chartcarefully and recognize, using context, where substitutions have occurred. documented in this encounter Plan of Treatment Not on file documented as of this encounter Visit Diagnoses Diagnosis FAUSTINO (generalized anxiety disorder)- Primary Generalized anxiety disorder documented in this encounter Discontinued Medications Medication Sig Discontinue Reason Start Date End Da te ALPRAZolam (XANAX) 0.5 mg tablet TAKE 1 TABLET BY MOUTH THE NIGHT BEFORE APPOINTMENT THEN 1 TABLET BY MOUTH ONE HOUR PRIOR TO APPOINTMENT 09/10/2023 01/07/2024 documented as of this encounter Care Teams Elevator Constructor Relationship Specialty Start Date End Date Dena Moya NP [address] [facility] [address] [place] [address] PCP - General Family Medicine 09/03/23 documented as of this encounter
--- OUTSIDE RECORDS SUMMARY | 2024-03-30 22:55 | XMS_ITS | Encounter Summary ---
Author Organization [facility] Address [address] [place] [address] Phone Care Team Providers Care Scratcher Tender Name Role Phone Ally Moreira Primary Care Provider + Reason for Referral * Consult, Test & Initiate Treatment (Routine) - Closed Specialty Diagnoses / Procedures Referred By Ifeanyi nieves Referred To Contact Behavioral Health Diagnoses Attention deficit Ally Moreira [facility] [address] [place] [address] Phone: tel: fax: Preet Stafford PSYD [place] Referral ID Status Reason Start Date Expiration Date Visits Re quested Visits Authorized [id number] Closed 01/16/2023 12 12 Scheduling Instructions Danyell is being referred for evaluation for possible ADD. Please contact patient for scheduling questions or concerns. Reason for Visit * Reason Comments Preventive Care Encounter Details Date Type Department Care Team (Late st Contact Info) Description 01/16/2023 11:00 AM CDT Office Visit [facility] - Family [facility] [address] [place] [address] Ally Moreira PAC [address] [place] [address] Well adult exam (Primary Dx); Attention deficit Discharge Disposition: Discharged [...] Sign Reading Time Taken Comments Blood Pressure 126/84 01/16/2023 11:16 AM CDT Pulse 84 01/16/2023 11:16 AM CDT Temperature 36.5 ??C (97.7 ??F) 01/16/2023 1 1:16 AM CDT Respiratory Rate - - Oxygen Saturation 100% 01/16/2023 11: 16 AM CDT Inhaled Oxygen Concentration - - Weight 128.8 kg (284 lb) 01/16/2023 11: 16 AM CDT BMI incorrect due to technical error Height 157.5 cm (5' 2 ) 01/16/2023 11:1 6 AM CDT BMI incorrect due to technical error Body Mass Index 51.94 01/16/2023 11:16 AM CDT documented in this encounter Functional Status * Question Answer Date of Assessment Author Little interest or pleasure in doing things Not at all 01/16/2023 11:21 AM CDT Rosie Strange CMA Feeling down, depressed, or hopeless Not at all 01/16/2023 11:21 AM CDT Rosie Strange CMA * Over the past 2 weeks, how often have you been bothered by any of the following problems? Question Answer Date of Assessment Author Patient Health Questionnaire -2 Score 0 01/16/2023 11:21 AM CDT Rosie Strange CMA documented as of this encounter Patient Instructions * Patient Instructions* Rosie Strange CMA - 01/16/2023 11:00 AM CDT Images from the original note [...] to help you succeed. Before you quit: ??? Pick a date to quit. Set a date within the next 2 weeks to give you time to prepare. ??? Write down the reasons why you are quitting. Keep this list in places where you will see it often. ??? Tell your family, friends, and co-workers that you are quitting. Support from your loved ones can make quitting easier. ??? Talk with your health care provider about your options for quitting smoking. ??? Find out what treatment options are covered by your health insurance. ??? Identify people, places, things, and activities that make you want to smoke (triggers). Avoid them. What first steps can I take to quit smoking? Throw away all cigarettes at home, at work, and in your car. ??? Throw away smoking accessories, such as ashtrays and lighters. ??? Clean your car. Make sure to empty the ashtray. ??? Clean your home, including curtains and carpets. What strategies can I use to quit smoking? Talk with your health care provider about combining strategies, such as taking medicines while you are also receiving in-person counseling. Using these two strategies together makes you more likely to succeed in quitting than if you used either strategy on its own. ??? If you are or , talk with your health care provider about finding counseling or other support strategies to quit smoking. Do not take medicine to help you quit smoking unless your health care provider tells you to do so. To quit smoking: Quit right away ??? Quit smoking completely, instead of gradually reducing how much you smoke over a period of time. Research shows that stopping smoking right away is more successful than gradually quitting. ??? Attend in-person counseling to help you build problem-solving skills. You are more likely to succeed in quitting if you attend counseling sessions regularly. Even short sessions of 10 minutes canbe effective. Take medicine You may take medicines to help you quit smoking. Some medicines require a prescription and some youcan purchase [id number]. Medicines may have nicotine in them to replace the nicotine in cigarettes. Medicines may: ??? Help to stop cravings. ??? Help to relieve withdrawal symptoms. Your health care provider may recommend: ??? Nicotine patches, gum, or lozenges. ??? Nicotine inhalers or sprays. ??? Non-nicotine medicine that is taken by mouth. Find resources Find resources and support systems that can help you to quit smoking and remain smoke-free after you quit. These resources are most helpful when you use them often. They include: ??? Online chats with a counselor. ??? Telephone quitlines. ??? Printed self-help materials. ??? Support groups or group counseling. ??? Text messaging programs. ??? Mobile phone apps or applications. Use apps that can help you stick to your quit plan by providing reminders, tips, and encouragement. There are many free apps for mobile devices as well as websites. Examples include Quit Guide from the CDC and smokefree.gov What things can I do to make it easier to quit? Reach out to your family and friends for support and encouragement. Call telephone quitlines (9-142-OCYANOW), reach out to support groups, or work with a counselor for support. ??? Ask people who smoke to avoid smoking around you. ??? Avoid places that trigger you to smoke, such as bars, parties, or smoke- break areas at work. ??? Spend time with people who do not smoke. ??? Lessen the stress in your life. Stress can be a smoking trigger for some people. To lessen stress, try: ? Exercising regularly. ? Doing deep-breathing exercises. ? Doing yoga. ? Meditating. ? Performing a body scan. This involves closing your eyes, scanning your body from head to toe, andnoticing which parts of your body are particularly [...] 2-3 weeks. You may experience these symptoms: ??? Mood swings. ??? Restlessness, anxiety, or irritability. ??? Trouble concentrating. ??? Dizziness. ??? Strong cravings for sugary foods and nicotine. ??? Mild weight gain. ??? Constipation. ??? Nausea. ??? Coughing or a sore throat. ??? Changes in how the medicines that you take for unrelated issues work in your body. ??? Depression. ??? Trouble sleeping (insomnia). Week 3 and afterward After the first 2-3 weeks of quitting, you may start to notice more positive results, such as: ??? Improved sense of smell and taste. ??? Decreased coughing and sore throat. ??? Slower heart rate. ??? Lower blood pressure. ??? Clearer skin. ??? The ability to breathe more easily. ??? Fewer sick days. Quitting smoking can be very challenging. Do not get discouraged if you are not successful the first time. Some people need to make many attempts to quit before they achieve long-term success. Do your best to stick to your quit plan, and talk with your health care provider if you have any questionsor concerns. Summary ??? Smoking tobacco is the leading cause of preventable . Quitting smoking is one of the best things that you can do for your health. ??? When you decide to quit smoking, create a plan to help you succeed. ??? Quit smoking right away, not slowly over a period of time. ??? When you start quitting, seek help from your health care provider, family, or friends. This information is not intended to replace advice given to you by your health care provider. Make sure you discuss any questions you have with your health care provider. Document Revised: 12/06/2021 Document Reviewed: 06/18/2019 [employer] Patient Education ?? 2021 [employer] Health Risks of Smoking Smoking tobacco [...] and others take time. Benefits may include: ??? Blood flow, blood pressure, heart rate, and lung capacity may begin to improve. However, any lung damage that has already occurred cannot be repaired. ??? Temporary respiratory symptoms, such as nasal congestion and cough, may improve over time. ??? Your risk of heart disease, stroke, and cancer is reduced. ??? The overall quality of your health may improve. ??? You may save money, as you will not spend money on tobacco products and may spend less money onsmoking-related health issues. What can increase my risk? Smoking harms nearly every organ in the body. People who smoke tobacco have a shorter life expectancy and an increased risk of many serious medical problems. These include: ??? More respiratory infections, such as colds and pneumonia. ??? Cancer. ??? Heart disease. ??? Stroke. ??? Chronic respiratory diseases. ??? Delayed wound healing and increased risk of complications during surgery. ??? Problems with reproduction, , and childbirth, such as infertility, early (premature) births, stillbirths, and defects. Secondhand smoke exposure to children increases the risk of: ??? Sudden infant syndrome (SIDS). ??? Infections in the nose, throat, or airways (respiratory infections). ??? Chronic respiratory symptoms. What actions can I take to quit? Smoking is an addiction that affects both your body and your mind, and long-time habits can be hardto change. Your health care provider can recommend: ??? Nicotine replacement products, such as patches, gum, and nasal sprays. Use these products only as directed. Do not replace cigarette smoking with electronic cigarettes, which are commonly called e-cigarettes. The safety of e- cigarettes is not known, and some may contain harmful chemicals. ??? Programs and community resources, which may include group support, education, or talk therapy. ??? Prescription medicines to help reduce cravings. ??? A combination of two or more quit methods, which will increase the success of quitting. Where to find support Follow the recommendations from your health care provider about support groups and other assistance. You can also visit: ??? [place] [employer]uit[employer]: www.naquitline.org or call 8-272-DGUA-NOW. ??? U.S. Department of Health and Human Services: www.smokefree.gov ??? [place] [employer]: www.freedomfromsmoking.org ??? [place] [employer]: www.heart.org Where to find more information ??? Centers for Disease Control and Prevention: www.cdc.gov ??? World Health Organization: www.who.int Summary ??? Smoking tobacco is very bad for your health. Tobacco smoke contains many toxic chemicals that can damage every part of the body. ??? Smoking is difficult to quit because a chemical in tobacco, called nicotine, causes addiction or dependence. ??? There are immediate and long-term health benefits of quitting smoking. ??? A combination of two or more quit methods increases the success of quitting. This information is not intended to replace advice given to you by your health care provider. Make sure you discuss any questions you have with your health care provider. Document Revised: 12/02/2021 Document Reviewed: 05/14/2020 [employer] Patient Education ?? 2021 [employer]. documented in this encounter Progress Notes * Katarzyna Pearson - 01/16/2023 11:00 AM CDT Pre-Visit Planning Documentation Main reason for visit? Establish care Any other concerns or questions that should be discussed at the visit? No Recent ED Visits and Hospitalizations None There are no preventive care reminders to display for this patient. Orders due are pended? no Pre-Visit Planning Status: Incomplete Communication Method Used to Complete PVP: Phone Pre-Visit Planning documented on 01/14/23 4:44 PM CDT by Katarzyna Pearson Called to pre-visit, patient is at work and can not pre-visit Made corrections to her allergy list , Patient did not have time to pre-visit * Rosie Strange CMA - 01/16/2023 11:00 AM CDT Danyell Edwards is a 22 y.o. female with current BMI: Body mass index is 51.94 kg/m??. Interventions discussed including: encourage daily physical activity and well- balanced diet. * Rosie Strange CMA - 01/16/2023 11:00 AM CDT Danyell Edwards, 22 y.o., female is here for Preventive Care Medication Refills: Patient reports/denies need for medication refills. Orders Pended: no Requested Prescriptions No prescriptions requested or ordered in this encounter Home Medications Not on File There are no discontinued medications. I have reviewed the home medication list with the patient and have reconciled discrepancies. The list is accurate to the best of my knowledge. Smoking Status: Social History Tobacco Use ??? Smoking status: Every Day Types: Cigarettes ??? Smokeless tobacco: Never Vaping Use ??? Vaping Use: Every day Substance Use Topics ??? Alcohol use: Yes Comment: on occasion ??? Drug use: Yes Types: Marijuana Smoking Cessation Counseling Given: yes Health Care Maintenance: Health Maintenance Due Topic Date Due ??? Hepatitis B Immunization (1 of 3 - 3-dose series) Never done ??? Hepatitis C Virus (HCV) Screening Never done ??? DTaP/Tdap/Td Immunization (1 - Tdap) Never done ??? Human Papillomavirus (HPV) Immunization (1 - 2-dose series) Never done ??? Pap Smear Never done Orders Pended: no The following BPA's have been addressed with the patient today: BMI, Smoking, Depression, Fall Risk and Nutrition PHQ-2 Little interest or pleasure in doing things: Not at all Feeling down, depressed, or hopeless: Not at all Initial Score - If the score is 2 or higher, please proceed with the additional evaluation.: 0 PHQ-9 * Ally Moreira PAC - 01/16/2023 11:00 AM CDT Subjective: Subjective New patient in office to establish care, last labs about 5 yrs ago, prior to back surgery 2018 back surgery Thinks may have ADHD, difficulty focus and executive dysfunction, affects work. Gets frequent heartburn daily, takes omeprazole few times Ankles swell, few times per week Gets diarrhea, has frequent hunger, can eat full meal and still be hungry Breakfast cereal, pop tart, granola bar, at home may not eat till dinner Lunch, will eat almonds or something small Dinner, meat, pasta, vegetables. Snacks, cheeze it Drink; water and grapefruit juice Soda with dinner Review of Systems Constitutional: Negative for fatigue. HENT: Negative for congestion, sore throat and trouble swallowing. Eyes: Negative for visual disturbance. Respiratory: Negative for cough and shortness of breath. Cardiovascular: Negative for chest pain and palpitations. Gastrointestinal: Positive for diarrhea. Negative for abdominal pain, constipation, nausea and vomiting. Notes sometimes frequent stools, can go 5 times in few hours Sometimes foods high in dairy can cause issue Endocrine: Negative for polyuria. Genitourinary: Positive for menstrual problem. Negative for difficulty urinating, dysuria and vaginal discharge. Irregular menses, sometimes no menses for a month No surveillance agent Musculoskeletal: Bilateral knee pain Skin: Negative for rash. Allergic/Immunologic: Negative for immunocompromised state. Neurological: Positive for light-headedness and headaches. Looks at screen daily, wearing blue light glasses helps. Headaches 2-3 times weekly, notices right eye sensitive to light, feels in frontal area When bending down at work and getting up get lightheaded Psychiatric/Behavioral: Positive for sleep disturbance. Objective: Objective Physical Exam Vitals reviewed. Constitutional: Appearance: Normal appearance. She is not ill-appearing. HENT: Head: Normocephalic and atraumatic. Right Ear: Tympanic membrane normal. Left Ear: Tympanic membrane normal. Nose: Nose normal. Mouth/Throat: Mouth: Mucous membranes are moist. Eyes: General: Right eye: No discharge. Left eye: No discharge. Extraocular Movements: Extraocular movements intact. Cardiovascular: Rate and Rhythm: Normal rate and regular rhythm. Heart sounds: No murmur heard. Pulmonary: Effort: Pulmonary effort is normal. No respiratory distress. Breath sounds: Normal breath sounds. No wheezing. Abdominal: General: Bowel sounds are normal. There is no distension. Palpations: Abdomen is soft. Tenderness: There is no abdominal tenderness. Lymphadenopathy: Cervical: No cervical adenopathy. Skin: General: Skin is warm. Neurological: General: No focal deficit present. Mental Status: She is alert. Psychiatric: Mood and Affect: Mood normal. Assessment and Plan See Diagnoses, Orders, Follow-up, and Instructions .Diagnoses and all orders for this visit: Well adult exam - CMP (COMPREHENSIVE METABOLIC PANEL); Future - COMPLETE BLOOD COUNT (CBC) WITH DIFF; Future - THYROID STIMULATING HORMONE (TSH); Future - LIPID PANEL; Future Attention deficit - PSYCHOLOGY REFERRAL; Future Suggest fasting labs in future as ordered will follow up when resulted Referred to get evaluation for possible ADD Discussed can make follow up to discuss medications after evaluation completed Notify any acute problems documented in this encounter Plan of Treatment Scheduled Orders Name Type Priority Associated Diagnoses Orde r Schedule CMP (COMPREHENSIVE METABOLIC PANEL) Lab Routine Well adult exam Expected: 02/05/2023 (Approximate), Expires: 02/06/2024 COMPLETE BLOOD COUNT (CBC) WITH DIFF Lab Routine Well adult exam Expected: 02/05/2023 (Approximate), Expires: 02/06/2024 THYROID STIMULATING HORMONE (TSH) Lab Routine Well adult exam Expected: 02/05/2023 (Approximate), Expires: 02/06/2024 LIPID PANEL Lab Routine Well adult exam Expected: 01/16/2023, Expires: 04/18/2023 Scheduled Referrals Name Type Priority Associated Diagnoses Order Schedule PSYCHOLOGY REFERRAL Outpatient Referral Routine Attention deficit Expected: 03/19/2023, Expires: 09/18/2023 documented as of this encounter Visit Diagnoses Diagnosis Well adult exam- Primary Routine general medical examination at a health care facility Attention deficit Attention or concentration deficit documented in this encounter Care Teams Scratcher Tender Relationship Specialty Start Date End Date Ally Moreira [facility] [address] [place] [address] PCP - General Physician Pals Specialist 01/16/23 documented as of this encounter
--- OUTSIDE RECORDS SUMMARY | 2024-03-30 22:55 | XMS_ITS | Encounter Summary ---
Author Organization [facility] Address [address] [place] [address] Phone Care Team Providers Care Dollyman Name Role Phone Unavailable Primary Care Provider Unavailabl e Encounter Details Date Type Department Care Team (Late st Contact Info) Description 01/15/2023 Telephone [facility] - [place] [address] [place] [address] Ally Moreira, [facility] [address] [place] [address] Social History Tobacco Use Types Packs/Day Years Used Date Smoking Tobacco: Never Assessed Comments Unknown Sex and Gender Information Value Date Recorded Sex Assigned at Not on file Legal Sex Female 12:14 PM CDT Gender Identity Not on file Sexual Orientation Not on file documented as of this encounter Miscellaneous Notes * Telephone Encounter - Katarzyna Pearson - 01/15/2023 2:52 PM CDT Returned patients call, She called to correct allergy list, Per patient she is not allergic to Gabapenin or tramadol. The medication that she is allergic to is Pregabalin Made corrections to her allergy list , Patient did not have time to pre-visit documented in this encounter Plan of Treatment Not on file documented as of this encounter Visit Diagnoses Not on filedocumented in this encounter
--- OUTSIDE RECORDS SUMMARY | 2024-03-30 22:55 | XMS_ITS | Encounter Summary ---
Author Organization [facility] Address [address] [facility] [address] [place] [id number] Care Team Providers Care Shaving Machine Operator Name Role Phone Ben Gill DO Primary Care Provider [phone] Reason for Visit * Reason Comments Eye Problem both eyes red, swoll en and drainage since yesterday and very itchy. Encounter Details Date Type Department Care Team (Latest Contact Info) Description 02/21/2017 10:30 AM CATERER'S AIDE Office Visit [facility] [address] [place] [address] Huang Dobson NP [address] [facility] [address] [place], [place] [id number] Acute conjunctivitis of both eyes, unspecified acute conjunctivitis type (Primary Dx) Social History Tobacco Use Types Packs/Day Years Used Date Smoking Tobacco: Never Smokeless Tobacco: Never Comments Unknown Sex and Gender Information Value Date Recorded Sex Assigned at Not on file Legal Sex Female 2:33 AM CATERER'S AIDE Gender Identity Not on file Sexual Orientation Bisexual 12/03/2023 7: 02 AM CDT documented as of this encounter Last Filed Vital Signs Vital Sign Reading Time Taken Comments Blood Pressure 104/80 02/21/2017 10:51 AM CATERER'S AIDE Pulse 68 02/21/2017 10:51 AM CATERER'S AIDE Temperature 36.7 ??C (98.1 ??F) 02/21/2017 10:[address] Respiratory Rate 19 02/21/2017 10:51 AM CATERER'S AIDE Oxygen Saturation 98% 02/21/2017 10:51 AM CATERER'S AIDE Inhaled Oxygen Concentration - - Weight 103.9 kg (229 lb) 02/21/2017 10:51 AM CATERER'S AIDE Height 157.5 cm (5' 2 ) 02/21/2017 10:51 AM CATERER'S AIDE Body Mass Index 41.88 02/21/2017 10:51 AM CATERER'S AIDE Body Mass Index Percentile 99.40% 02/21/2017 10: 51 AM CATERER'S AIDE Growth Chart: [facility] (Girls, 2- 20 Years) documented in this encounter Patient Instructions * Patient Instructions* Huang Dobson NP - 02/21/2017 10:30 AM CATERER'S AIDE Complete the antibiotic eye ointment/drops as directed. Practice good hand hygiene before and afteradministering medication and when ever you touch your eye. Pull your lower eye lid down to form a pocket. Drop eye drop into the pocket formed. Do not touch the medication bottle tip to your eye. Follow up with your PCP if you are not getting better. If you experience deep eye pain or vision loss go to the emergency room. RER'S AIDE documented in this encounter Ordered Prescriptions Prescription Sig Dispense Quantity Refills Last Filled Start Date End Date trimethoprim-polym yxin B (POLYTRIM) ophthalmic solution Administer 2 drops into both eyes 4 (four) times a day for 7 days. 10 mL 02/21/2017 7 documented in this encounter Progress Notes * Huang Dobson NP - 02/21/2017 10:30 AM CST Subjective Patient ID: Danyell Nix is a 16 y.o. female. Eye Problem (both eyes red, swollen and drainage since yesterday and very itchy.) Bilateral eye redness for the past 24 hours with sever matting in the morning Eye Problem Both eyes are affected.This is a new problem. The current episode started yesterday. The problem occurs constantly. The problem has been gradually worsening. There was no injury mechanism. The pain is at a severity of 0/10. The patient is experiencing no pain. There is no known exposure to pink eye. She does not wear contacts. Associated symptoms include an eye discharge, eye redness and itching.Pertinent negatives include no blurred vision, double vision or nausea. She has tried nothing for the symptoms. The treatment provided no relief. Review of Systems Constitutional: Negative for activity change. HENT: Positive for congestion. Negative for sneezing. Eyes: Positive for discharge, redness and itching. Negative for blurred vision and double vision. Respiratory: Negative for choking. Gastrointestinal: Negative for nausea. Genitourinary: Negative for dysuria. Musculoskeletal: Negative for arthralgias. Skin: Negative for rash. Objective Physical Exam Constitutional: She appears well-developed and well-nourished. HENT: Head: Normocephalic. Right Ear: External ear normal. Left Ear: External ear normal. Nose: Nose normal. Mouth/Throat: Oropharynx is clear and moist. Eyes: EOM and lids are normal. Pupils are equal, round, and reactive to light. Right eye exhibits discharge. Left eye exhibits discharge. Bilateral conjuntivitis Neck: Normal range of motion. Neck supple. Cardiovascular: Normal rate, regular rhythm and normal heart sounds. Pulmonary/Chest: Effort normal and breath sounds normal. Abdominal: Soft. Musculoskeletal: Normal range of motion. Neurological: She is alert. Skin: Skin is warm. Vitals: 02/21/17 1051 BP: 104/80 BP Location: Left arm Patient Position: Sitting Pulse: 68 Resp: 19 Temp: 36.7 ??C (98.1 ??F) TempSrc: Oral SpO2: 98% Weight: 103.9 kg (229 lb) Height: 157.5 cm (5' 2 ) Assessment/Plan There are no diagnoses linked to this encounter. No notes on file RER'S AIDE documented in this encounter Plan of Treatment Not on file documented as of this encounter Visit Diagnoses Diagnosis Acute conjunctivitis of both eyes, unspecified acute conjunctivitis type- Primary documented in this encounter Care Teams Shaving Machine Operator Relationship Specialty Start Date End Date Ben Gill DO PCP - General 12/03/11 09/02/23 documented as of this encounter
--- OUTSIDE RECORDS SUMMARY | 2024-03-30 22:55 | XMS_ITS | Clinical Summary ---
Author Organization [facility] Address [address] [place] [address] Phone Care Team Providers Care Canvas Marker Name Role Phone Ally Moreira [facility] Primary Care Provider + Allergies Active Allergy Reactions Criticality Noted Date Comments Pregabalin Palpitations,Other ( see Comments) High 01/15/2023 Dizzy and passes out Per patient and her former doctors office Medications ALPRAZolam (XANAX) 0.5 MG TabletIndications: Anxiety Take 1 pill by oral route 30-60 min prior to procedure 1 Tablet 4 Active amphetamine-dextro amphetamine (Adderall XR) 20 MG CAPSULE SR 24 HRIndications:Atte ntion deficit disorder, unspecified hyperactivity presence Take 1 Capsule by mouth every morning. 30 Capsule 4 Active Active Problems Problem Noted Date Diagnosed Date Attention deficit disorder 06/18/2023 Developmental disorder 04/07/2023 Immunizations Immunization Administration Dates Next Due Influenza Vaccine, MDCK,quadrivalent, pres free 12/31/2022 Family History Medical History Relation Name Comments ADD / ADHD Father Anxiety disorder Father Depression Father Hypertension Father ADD / ADHD Half-Sister 1 Anxiety disorder Mother Depression Mother Hypertension Mother Seizures Mother Relation Name Status Comments Father Alive Half-Brother Alive Half-Sister 1 Alive Half-Sister 2 Alive Half-Sister 3 Alive Half-Sister 4 Alive Mother Alive Social History Tobacco Use Types Packs/Day [...] on file Sexual Orientation Not on file Last Filed Vital Signs Vital Sign Reading Time Taken Comments Blood Pressure 122/86 06/18/2023 2:52 PM GEOCHEMICAL LABORATORY TECHNICIAN Pulse 87 06/18/2023 2:52 PM GEOCHEMICAL LABORATORY TECHNICIAN Temperature 36.6 ??C (97.8 ??F) 06/18/2023 2:52 PM CS T Respiratory Rate - - Oxygen Saturation 100% 06/18/2023 2:52 PM GEOCHEMICAL LABORATORY TECHNICIAN Inhaled Oxygen Concentration - - Weight 127 kg (280 lb) 06/18/2023 2:52 PM GEOCHEMICAL LABORATORY TECHNICIAN Height 157.5 cm (5' 2 ) 06/18/2023 2:52 PM GEOCHEMICAL LABORATORY TECHNICIAN Body Mass Index 51.21 06/18/2023 2:52 PM GEOCHEMICAL LABORATORY TECHNICIAN Plan of Treatment Health Maintenance Due Date Last Done Comments TdaP Immunization 1998 Pneumococcal Immunization Co mbined (1 of 2 - PCV) 2004 Human Papillomavirus (HPV) Immunization (1 - 3-dose series) 2013 Hepatitis B Immunization (1 of 3 - 19+ 3-dose series) 2017 Pap Smear 10/09/2019 Influenza Immunization (#1) 2023 12/31/2022 SARS-COV-2 Immunization (2 - season) 2023 12/31/2022 Respiratory Syncytial Virus (RSV) Immunization (Adult) (1 - 1-dose 75+ series) 2073 Hepatitis C Virus (HCV) Screening Discontinued Meningococcal Immunization (ACWY) Aged Out No longer eligible based on patient's age to complete this topic Rotavirus Immunization Aged Out No lo nger eligible based on patient's age to complete this topic Insurance MEDICAID [place] [address] [facility] Care Teams Canvas Marker Relationship Specialty Start Date End Date Ally Moreira [address] [place] [address] PCP - General Physician Harvest Field Ticketer 01/16/23
--- OUTSIDE RECORDS SUMMARY | 2024-03-30 22:56 | XMS_ITS | Encounter Summary ---
Author Organization [facility] Address [address] [place] [address] Care Team Providers Care Leaf Coverer Name Role Phone Unavailable Primary Care Provider Unavailabl e Encounter Details Date Type Department Care Team (Late st Contact Info) Description 11/04/2006 11:54 AM CDT - 11/04/2006 11:59 PM CDT Hospital Encounter [facility] Ben Gill, DO [address] [place] [address] Social History Tobacco Use Types Packs/Day Years Used Date Smoking Tobacco: Never Assessed Comments Unknown Sex and Gender Information Value Date Recorded Sex Assigned at Not on file Legal Sex Female 2:33 AM HARVEST WORKER Gender Identity Not on file Sexual Orientation Bisexual 12/03/2023 7: 02 AM CDT documented as of this encounter Plan of Treatment Not on file documented as of this encounter Visit Diagnoses Not on filedocumented in this encounter
== END 2024-03-26 15:57 | disposition home or self-care (01) ==
PROVIDERS: Emergency Provider Nurse Practitioner Family; PCP Nurse Practitioner Family
DX: L03.011 Cellulitis of right finger (principal)
CPT/HCPCS: 99203; G0463